=== PATIENT | female | born 1925 | race Caucasian/White ===

== ENCOUNTER 2017-03-03 12:46 | Emergency (ER) | payer MEDICARE ==
[~2017-03-03] VITALS: Ht 144.8 cm; Wt 46.0 kg
[~2017-03-03 12:46] MED LIST: CALC250 PO; CEPH500C3 PO; COSA500T PO; COZA100T PO; LORTA5 PO; MIRA0.25 PO; NAPR220T95 PO; NEUR100C PO
[2017-03-03 13:02] VITALS: BP 162/75; PULSE 82; RESP 16; TEMP 97.8; O2SAT 98
[2017-03-03] MEDS ORDERED: LOSA100T PO (13:09)
[2017-03-03] MEDS ORDERED: GABA100C4 PO (13:09)
[2017-03-03 13:13] VITALS: RESP 16; O2SAT 99
--- NOTE | 2017-03-03 13:17 | PD ---
HPI Chief Complaint: Fall Time Seen by Provider: 13:05 Travel History International Travel<30 days: No Contact w/Intl Traveler<30days: No Traveled to known affect area: No History of Present Illness HPI 89-year-old female complains of hip pain. Patient states that she was trying to get out of chair and fell onto the floor last night. Patient states that she stay on the floor all night last night. Patient finally called for help this morning. Patient was transported by EMS to the emergency room. Patient denies any headache. Patient denies any chest pain or shortness of breath. Patient denies abdominal pain. Patient denies any focal weakness or numbness of extremity. She is status post left hip surgery in the past. Patient has history hypertension. [facility] Past Medical History Arthritis: Yes (Osteo arthritis and spinal stenosis with khloe in back) Heart Rhythm Problems: No Cancer: Yes (Squamous cell skin ca, removed) Cardiovascular Problems: Yes High Cholesterol: No Chemotherapy: No Chest Pain: No Congestive Heart Failure: No Diabetes: No Endocrine: No Genitourinary: No Hepatitis: No Hiatal Hernia: No Hypertension: Yes Immune Disorder: No Implanted Vascular Access Dvce: Yes Musculoskeletal: Yes Neurologic: No Psychiatric: No Reproductive: No Respiratory: No Radiation Therapy: No Thyroid Disease: No ?: Not Past Surgical History Abdominal Surgery: No AICD: No Arteriovenous Shunt: No Cardiac Surgery: No Ear Surgery: No Endocrine Surgery: No Eye Surgery: No Genitourinary Surgery: No Gynecologic Surgery: No Insulin Pump: No Joint Replacement: Yes (Bilat hips) Oral Surgery: Yes Pacemaker: No Thoracic Surgery: No Social History Alcohol Use: No Tobacco Use: No Substance Use: No Allergies-Medications (Allergen,Severity, Reaction): Coded Allergies: codeine (Verified Adverse Reaction, Unknown, NAUSEAS, 03/03/17) Reported Meds & Prescriptions Reported Meds & Active Scripts Active Reported Losartan (Losartan Potassium) 100 Mg Tab 100 Mg PO DAILY Gabapentin 100 Mg Cap 200 Mg PO BID Review of Systems General / Constitutional: No: Fever Eyes: No: Visual changes HENT: No: Headaches Cardiovascular: No: Chest Pain or Discomfort Respiratory: No: Shortness of Breath Gastrointestinal: No: Abdominal Pain Genitourinary: No: Dysuria Musculoskeletal: Positive: Pain Skin: No Rash Neurologic: No: Weakness Psychiatric: No: Depression Endocrine: No: Polydipsia Hematologic/Lymphatic: No: Easy Bruising Physical Exam Narrative GENERAL: Well-nourished, well-developed patient. SKIN: Focused skin assessment warm/dry. HEAD: Normocephalic. EYES: No scleral icterus. No injection or drainage. NECK: Supple, trachea midline. No JVD or lymphadenopathy. CARDIOVASCULAR: Regular rate and rhythm without murmurs, gallops, or rubs. RESPIRATORY: Breath sounds equal bilaterally. No accessory muscle use. GASTROINTESTINAL: Abdomen soft, non-tender, nondistended. MUSCULOSKELETAL: No cyanosis, or edema. BACK: Nontender without obvious deformity. No CVA tenderness. Patient has moderate tenderness on palpation left hip joint. The left leg is shortened and mildly internally rotated. Sensorimotor function distally intact. Data Data Last Documented VS Vital Signs Date Time Temp Pulse Resp B/P (MAP) Pulse Ox O2 Delivery O2 Flow Rate FiO2 03/03/17 15:25 100 3.00 03/03/17 14:30 97.8 78 17 158/76 (103) Room Air Orders Orders Complete Blood Count With Diff (03/03/17 13:05) Basic Metabolic Panel (Bmp) (03/03/17 13:05) Prothrombin Time / Inr (Pt) (03/03/17 13:05) Act Partial Throm Time (Ptt) (03/03/17 13:05) Iv Access Insert/Monitor (03/03/17 13:05) Ecg Monitoring (03/03/17 13:05) Oximetry (03/03/17 13:05) Hip, Uni(Ap&Lat) W Ap Pelvis (03/03/17 13:05) Urinary Catheter Insert/Apply (03/03/17 13:39) Electrocardiogram (03/03/17 ) Chest, Single Ap (03/03/17 13:42) Etomidate Inj (Amidate Inj) (03/03/17 14:15) Splint Or Brace Apply/Monitor (03/03/17 14:08) Hip, Ap Only Wo Ap Pelvis (03/03/17 ) Knee, Ltd (1 Or 2vws) (03/03/17 15:20) Labs Laboratory Tests Test 03/03/17 13:17 White Blood Count 15.0 TH/MM3 Red Blood Count 4.68 MIL/MM3 Hemoglobin 14.7 GM/DL Hematocrit 43.0 % Mean Corpuscular Volume 92.0 FL Mean Corpuscular Hemoglobin 31.4 PG Mean Corpuscular Hemoglobin Concent 34.1 % Red Cell Distribution Width 14.0 % Platelet Count 215 TH/MM3 Mean Platelet Volume 8.8 FL Neutrophils (%) (Auto) 90.7 % Lymphocytes (%) (Auto) 3.6 % Monocytes (%) (Auto) 5.5 % Eosinophils (%) (Auto) 0.0 % Basophils (%) (Auto) 0.2 % Neutrophils # (Auto) 13.6 TH/MM3 Lymphocytes # (Auto) 0.5 TH/MM3 Monocytes # (Auto) 0.8 TH/MM3 Eosinophils # (Auto) 0.0 TH/MM3 Basophils # (Auto) 0.0 TH/MM3 CBC Comment DIFF FINAL Differential Comment Prothrombin Time 11.4 SEC Prothromb Time International Ratio 1.1 RATIO Activated Partial Thromboplast Time 25.4 SEC Blood Urea Nitrogen 26 MG/DL Creatinine 0.72 MG/DL Random Glucose 100 MG/DL Calcium Level 9.6 MG/DL Sodium Level 137 MEQ/L Potassium Level 4.0 MEQ/L Chloride Level 101 MEQ/L Carbon Dioxide Level 24.8 MEQ/L Anion Gap 11 MEQ/L Estimat Glomerular Filtration Rate 76 ML/MIN MDM Medical Decision Making Medical Screen Exam Complete: Yes Emergency Medical Condition: Yes Differential Diagnosis Differential diagnosis including contusion, sprain, fracture, dislocation. Narrative Course 89-year-old female with left hip injury. Critical Care Narrative Aggregate critical care time was 60 minutes. Time to perform other separately billable procedures was not included in the critical care time. My time did not include minutes spent treating any other patients simultaneously or on activities that did not directly contribute to the patient's treatment. The services I provided to this patient were to treat and/or prevent clinically significant deterioration that could result in: Disability I provided critical care services requiring my management, as noted below: Chart data review, documentation time, medication orders and management, vital sign assessments/reviewing monitor data, ordering and reviewing lab tests, ordering and interpreting/reviewing x-rays and diagnostic studies, care of the patient and discussion of the patient with the admitting physicians. Procedures Procedure Narrative Conscious sedation procedure: Patient was connected to property assessment monitor, pulse oximetry monitor, O2. Normal saline solution 1 25 cc an hour. Etomidate 5 mg IV given. Patient was well sedated. Traction applied to the left leg with successful reduction of the left hip dislocation. X-ray confirmed reduction. Diagnosis Primary Impression: Hip dislocation, left Qualified Codes: S73.005A - Unspecified dislocation of left hip, initial encounter Patient Instructions: General Instructions Additional Instructions: Follow-up with orthopedist. Patient has home health care at home. Tylenol as needed for pain. Disposition: 01 DISCHARGE HOME Condition: Stable Sinan Jack MD Mar 03, 2017 13:17
--- NOTE | 2017-03-03 14:00 | RADRPT ---
EXAM DATE/TIME: 03/03/2017 13:21 [facility] COMPARISON: No previous studies available for comparison. INDICATIONS : Fell last night at home. MEDICAL HISTORY : None. SURGICAL HISTORY : bilateral hip replacements ENCOUNTER: Initial ACUITY: 1 day PAIN SCORE: 8/10 LOCATION: Left hip and pelvis FINDINGS: Superior/posterior dislocation of right total arthroplasty on the left without fracture. Intac arthr oplasty on the right. Previous lumbar spine surgery. CONCLUSION: Dislocation of arthroplasty on the left without fracture. Elie Luis MD FACR on March 03, 2017 at 13:57 Board Certified Radiologist. This report was verified electronically.
[2017-03-03 14:05] LABS: AUTOMATED NEUTROPHIL # 13.6 TH/MM3 (1.8-7.7); BASOPHIL % 0.2 % (0.0-2.0); HEMOGLOBIN 14.7 GM/DL (11.6-15.3); LYMPH % 3.6 % (9.0-44.0); LYMPHOCYTE # 0.5 TH/MM3 (1.0-4.8); MEAN CORPUSCULAR HEMOGLOBIN 31.4 PG (27.0-34.0); MEAN CORPUSCULAR HGB CONC 34.1 % (32.0-36.0); MEAN PLATELET VOLUME 8.8 FL (7.0-11.0); MONO % 5.5 % (0.0-8.0); MONOCYTE # 0.8 TH/MM3 (0-0.9); NEUT % 90.7 % (16.0-70.0); PLATELET COUNT 215 TH/MM3 (150-450); RED BLOOD COUNT 4.68 MIL/MM3 (4.00-5.30)
[2017-03-03 14:14] LABS: INTERNATIONAL NORMALIZED RATIO 1.1 RATIO; PROTHROMBIN TIME - PATIENT 11.4 SEC (9.8-11.6)
[2017-03-03] MEDS ORDERED: ETOMIDATE 20 MG/10 ML VIAL IV PUSH ONE (14:15)
[2017-03-03 14:30] VITALS: BP 158/76; PULSE 78; RESP 17; TEMP 97.8; O2SAT 99
--- NOTE | 2017-03-03 14:33 | RADRPT ---
EXAM DATE/TIME: 03/03/2017 13:58 [facility] COMPARISON: HIP LEFT (AP&LAT 2/3VWS) W AP PELVIS, March 03, 2017, 13:21. INDICATIONS : Shortness of breath. MEDICAL HISTORY : Hypertension. Arthritis. SURGICAL HISTORY : Bilateral hip replacements. ENCOUNTER: Subsequent ACUITY: 2 days PAIN SCORE: 0/10 LOCATION: Bilateral chest FINDINGS: The heart is enlarged. There are chronic interstitial changes. Findings are consistent with COPD. Not e is made of a 9 mm calcified granuloma on the right. No pleural effusion is seen. The visualized oss eous structures are intact. CONCLUSION: 1. Moderate COPD. Mirza Luis MD on March 03, 2017 at 14:30 Board Certified Radiologist. This report was verified electronically.
[2017-03-03 14:42] LABS: BICARBONATE 24.8 MEQ/L (21.0-32.0); CALCIUM 9.6 MG/DL (8.5-10.1); CREATININE 0.72 MG/DL (0.50-1.00)
[2017-03-03 15:25] VITALS: O2SAT 100
--- NOTE | 2017-03-03 15:46 | RADRPT ---
EXAM DATE/TIME: 03/03/2017 15:20 [facility] COMPARISON: No previous studies available for comparison. INDICATIONS : Fell last night. MEDICAL HISTORY : None. SURGICAL HISTORY : bilateral hip replacements ENCOUNTER: Initial ACUITY: 1 day PAIN SCORE: Non-responsive. LOCATION: Left knee FINDINGS: Extensive vascular calcifications. Moderate degenerative changes lateral compartment. No joint effu tom no fracture CONCLUSION: Moderate degenerative changes otherwise negative Elie Luis MD FACR on March 03, 2017 at 15:43 Board Certified Radiologist. This report was verified electronically.
--- NOTE | 2017-03-03 15:49 | RADRPT ---
EXAM DATE/TIME: 03/03/2017 15:17 [facility] COMPARISON: HIP LEFT (AP&LAT 2/3VWS) W AP PELVIS, March 03, 2017, 13:21. CHEST SINGLE AP, March 03, 2017, 13 :58. INDICATIONS : Post reduction. MEDICAL HISTORY : None. SURGICAL HISTORY : bilateral hip replacements ENCOUNTER: Initial ACUITY: 1 day PAIN SCORE: Non-responsive. LOCATION: Left hip FINDINGS: The patient is post left thoracoplasty. Orthopedic hardware is well-positioned and well aligned. Ther e is no evidence of fracture or other complication. Note is made of fusion hardware within the lumbar spine. CONCLUSION: Interval reduction of the patient's left hip arthroplasty.. Mirza Luis MD on March 03, 2017 at 15:46 Board Certified Radiologist. This report was verified electronically.
--- NOTE | 2017-03-03 15:59 | HHI.FF ---
Face to Face Verification Diagnosis: (1) Hip dislocation, left Physical Therapy Order: Evaluate and Treat, Improve ambulation, Strength and gait training Home Health Nursing Order: Medical education Medication education-adverse effect Home Health Aide Order: To Assist In: Bathing and personal care, sheet metal technician and meal prep Salary And Wage Administrator Order: To Evaluate: Support services I have seen patient María Elena Vinson on 03/03/17. My clinical findings support the need for the requested home health care services because: Ltd mobility - disease progression Limited ability to care for self High risk of falls I certify that my clinical findings support that this patient is homebound because: Unsteady gait/balance Sinan Jack MD Mar 03, 2017 15:59
[2017-03-03 16:16] VITALS: BP 141/103; PULSE 87; RESP 17
--- NOTE | 2017-03-04 13:22 | EKG ---
Date Performed: 03/03/2017 Time Performed: 13:39:46 PTAGE: 89 years EKG: Sinus rhythm LEFT ATRIAL ENLARGEMENT MARKED LEFT AXIS DEVIATION LEFT BUNDLE BRANCH BLOCK ABNORMAL ECG PREVIOUS TRACING : 04/05/2000 1052.09 Compared to previous tracing, these changes are new. DOCTOR: Juan Pierre Interpretating Date/Time 03/04/2017 13:21:29
== END 2017-03-03 17:56 | disposition home or self-care (01) ==
LOC: NEPE 12:46 → NEDAMB 17:56
DX: S73.005A Unspecified dislocation of left hip, initial encounter (principal); I44.7 Left bundle-branch block, unspecified; I10 Essential (primary) hypertension; M19.90 Unspecified osteoarthritis, unspecified site; Z96.643 Presence of artificial hip joint, bilateral; Z85.828 Personal history of other malignant neoplasm of skin; Z79.899 Other long term (current) drug therapy; W07.XXXA Fall from chair, initial encounter
CPT/HCPCS: 27250; 51702; 71045; 73501; 73502; 73560; 80048; 85025; 85610; 85730; 93005; 99291; L1830

== ENCOUNTER 2017-03-22 09:11 | Emergency (ER) | payer MEDICARE ==
[~2017-03-22] VITALS: Ht 160 cm; Wt 46.8 kg
[~2017-03-22 09:11] MED LIST changes: -CALC250 PO; -CEPH500C3 PO; -COSA500T PO; -COZA100T PO; +GABA100C4 PO; -LORTA5 PO; +LOSA100T PO; -MIRA0.25 PO; -NAPR220T95 PO; -NEUR100C PO
[2017-03-22 09:19] VITALS: BP 219/88; PULSE 84; RESP 15; TEMP 98; O2SAT 97
[2017-03-22] MEDS ORDERED: PRAM0.5T PO (09:19)
[2017-03-22] MEDS ORDERED: MORPHINE SULFATE 2 MG/ML INJ IV PUSH ONE (09:30)
--- NOTE | 2017-03-22 09:31 | PD ---
HPI Chief Complaint: Hip Injury Time Seen by Provider: 09:21 Travel History International Travel<30 days: No Contact w/Intl Traveler<30days: No Traveled to known affect area: No History of Present Illness HPI This is an 89 year-old woman who presents to the emergency department complaining of left hip pain. States she woke up this morning about it feels like her left hip is dislocated. She had a hip replacement done about 30 years ago. She's never had trouble with it until the fifth of this month she had a left hip dislocation. It was reduced in the emergency department today. She walks with a cane. She is otherwise independent and her ADLs ideals. She does live alone. History Past Medical History Narrative Medical Hypertension Social History Alcohol Use: No Tobacco Use: No Allergies-Medications (Allergen,Severity, Reaction): Coded Allergies: codeine (Verified Adverse Reaction, Unknown, NAUSEAS, 03/22/17) Reported Meds & Prescriptions Reported Meds & Active Scripts Active Reported Pramipexole (Pramipexole Dihydrochloride) 0.5 Mg Tab 0.5 Mg PO HS Losartan (Losartan Potassium) 100 Mg Tab 100 Mg PO DAILY Gabapentin 100 Mg Cap 200 Mg PO BID Review of Systems Except as stated in HPI: all other systems reviewed are Neg Physical Exam Narrative GENERAL: Well-appearing 89 year-old woman, no acute distress. SKIN: Focused skin assessment warm/dry. HEAD: Atraumatic. Normocephalic. NECK: Trachea midline. No JVD. CARDIOVASCULAR: Regular rate and rhythm. No murmur appreciated. RESPIRATORY: No accessory muscle use. Clear to auscultation. Breath sounds equal bilaterally. GASTROINTESTINAL: Abdomen soft, non-tender, nondistended. Hepatic and splenic margins not palpable. MUSCULOSKELETAL: Left hip is held slightly flexed. She is lying on her right side. She resists any movement of the left hip. Distally neurovascularly intact. NEUROLOGICAL: Awake and alert. No obvious cranial nerve deficits. Motor grossly within normal limits. Normal speech. Data Data Last Documented VS Vital Signs Date Time Temp Pulse Resp B/P (MAP) Pulse Ox O2 Delivery O2 Flow Rate FiO2 03/22/17 09:19 98.0 84 15 219/88 (131) 97 Orders Orders Hip, Uni(Ap&Lat) W Ap Pelvis (03/22/17 ) Iv Access Insert/Monitor (03/22/17 09:25) Morphine Inj (Morphine Inj) (03/22/17 09:30) Propofol 200 Mg/20 Ml Inj (Diprivan 200 (03/22/17 10:15) Hip, Ap Only Wo Ap Pelvis (03/22/17 ) Support Splint (03/22/17 11:15) [employer] Request For Service (03/22/17 11:15) MDM Medical Decision Making Medical Screen Exam Complete: Yes Emergency Medical Condition: Yes Interpretation(s) X-ray shows dislocation, repeat x-ray shows successful reduction. Differential Diagnosis Hip fracture, dislocation, contusion, other Narrative Course Medical decision-making INITIAL calls me 11 year-old woman presents emergent arm left hip dislocation. Pain, suspect dislocation. We'll check x-rays, reassess. Procedures Procedure Narrative After the risks and benefits were discussed the following procedure was performed: MODERATE SEDATION: The patient was placed on a youth nutritional monitor and pulse oximetry. An ambu bag and suction was immediately available at bedside. The patient was monitored by the nurse. Oxygen saturation, heart rate and blood pressure were monitored. Procedural sedation was acheived using propofol. The patient was observed until awake and alert. Procedural Sedation time in attendance was 20 minutes. Dislocation: Following procedural sedation, with the assistance your third check , left hip was reduced using traction countertraction. Patient tolerated well. Repeat x-ray confirms successful reduction. Diagnosis Primary Impression: Hip dislocation, left Additional Instructions: Follow-up with orthopedic doctor this week or next. Use knee immobilizer until you follow up with your orthopedic doctor. He is abduction pillow at night as discussed. Return to the emergency department for any new or worsening symptoms. Med/Other Pt SpecificInfo: No Change to Meds Disposition: 01 DISCHARGE HOME Condition: Stable Tushar Gorman MD Mar 22, 2017 09:31
--- NOTE | 2017-03-22 10:03 | RADRPT ---
EXAM DATE/TIME: 03/22/2017 09:41 [facility] COMPARISON: HIP LEFT (AP&LAT 2/3VWS) W AP PELVIS, March 03, 2017, 13:21. INDICATIONS : Woke up this morning with left hip dislocated. Pain with deformity. MEDICAL HISTORY : Arthritis. SURGICAL HISTORY : Bilateral total hips. ENCOUNTER: Initial ACUITY: 1 day PAIN SCORE: 10/10 LOCATION: Left hip. FINDINGS: Anterior superior dislocation left hip without fracture. FLOR on the right. Trace posterior spinal f ixation. CONCLUSION: Anterior superior dislocation left hip without fracture.. Elie Luis MD FACR on March 22, 2017 at 9:59 Board Certified Radiologist. This report was verified electronically.
[2017-03-22] MEDS ORDERED: PROPOFOL 200 MG/20 ML AMP IV ONE (10:15)
[2017-03-22 10:30] VITALS: O2SAT 100
--- NOTE | 2017-03-22 10:52 | RADRPT ---
EXAM DATE/TIME: 03/22/2017 10:39 [facility] COMPARISON: No previous studies available for comparison. INDICATIONS : Post reduction. MEDICAL HISTORY : hip reduced 20 SURGICAL HISTORY : left hip replaced in 1959 ENCOUNTER: Initial ACUITY: 1 day PAIN SCORE: Non-responsive. LOCATION: Left hip FINDINGS: Examination of the hip demonstrates no evidence of fracture or dislocation. Left hip prosthesis witho ut loosening. Vascular calcifications are seen. Fusion lumbar spine. Bone mineralization is normal. No foreign body is identified. CONCLUSION: Left hip prosthesis without hardware loosening or fracture. Asael Pedroza MD on March 22, 2017 at 10:49 Board Certified Radiologist. This report was verified electronically.
[2017-03-22 12:17] VITALS: BP 180/71
== END 2017-03-22 13:44 | disposition home or self-care (01) ==
LOC: NEPE 09:11
DX: M24.352 Pathological dislocation of left hip, not elsewhere classified (principal); I10 Essential (primary) hypertension; Z88.5 Allergy status to narcotic agent
CPT/HCPCS: 27265; 73501; 73502; 96374; 99285; J2270; L1830

== ENCOUNTER 2017-03-23 19:55 | Observation (INO) | payer MEDICARE ==
[~2017-03-23 19:55] MED LIST changes: +PRAM0.5T PO
[2017-03-23 20:19] VITALS: BP 230/114; PULSE 84; RESP 22; TEMP 97.9; O2SAT 100
--- NOTE | 2017-03-23 21:33 | RADRPT ---
EXAM DATE/TIME: 03/23/2017 20:54 [facility] COMPARISON: HIP LEFT AP ONLY WO AP PELVIS, March 22, 2017, 10:39. HIP LEFT (AP&LAT 2/3VWS) W AP PELVIS, 2017, 9:41. INDICATIONS : Left hip pain; possible dislocation. MEDICAL HISTORY : Multiple hip dislocations. SURGICAL HISTORY : Bilateral hip replacements. ENCOUNTER: Initial ACUITY: 1 day PAIN SCORE: 10/10 LOCATION: Left hip FINDINGS: There is a left total hip arthroplasty. There is a recurrent posterior/superior dislocation. No acute fractures demonstrated. No evidence of hardware failure or loosening. CONCLUSION: Recurrent dislocation of the left hip arthroplasty. Martinez Parra MD on March 23, 2017 at 21:30 Board Certified Radiologist. This report was verified electronically.
[2017-03-23 21:47] VITALS: BP 222/90; PULSE 91; RESP 20; O2SAT 96
--- NOTE | 2017-03-23 22:53 | RADRPT ---
EXAM DATE/TIME: 03/23/2017 22:36 [facility] COMPARISON: CHEST SINGLE AP, March 03, 2017, 13:58. INDICATIONS : Short of breath MEDICAL HISTORY : Multiple hip dislocations SURGICAL HISTORY : Bilateral hip replacements ENCOUNTER: Subsequent ACUITY: 1 day PAIN SCORE: 0/10 LOCATION: chest FINDINGS: Trace atelectasis and small effusions seen of both lung bases. No pneumothorax. Heart size stable, wi thin normal limits. Visualized osseous structures are grossly intact. Severe glenohumeral joint degenerative changes and suspected chronic full-thickness rotator cuff tears. CONCLUSION: Trace atelectasis and small pleural effusions of both lung bases. Martinez Parra MD on March 23, 2017 at 22:49 Board Certified Radiologist. This report was verified electronically.
[2017-03-23 23:32] LABS: AUTOMATED NEUTROPHIL # 10.2 TH/MM3 (1.8-7.7); BASOPHIL # 0.1 TH/MM3 (0-0.2); BASOPHIL % 0.6 % (0.0-2.0); EOSINOPHIL # 0.1 TH/MM3 (0-0.4); EOSINOPHIL % 0.8 % (0.0-4.0); HEMATOCRIT 35.5 % (35.0-46.0); LYMPHOCYTE # 0.7 TH/MM3 (1.0-4.8); MEAN CELL VOLUME 90.7 FL (80.0-100.0); MEAN CORPUSCULAR HEMOGLOBIN 30.7 PG (27.0-34.0); MEAN CORPUSCULAR HGB CONC 33.9 % (32.0-36.0); MEAN PLATELET VOLUME 8.1 FL (7.0-11.0); MONO % 7.4 % (0.0-8.0); MONOCYTE # 0.9 TH/MM3 (0-0.9); NEUT % 85.2 % (16.0-70.0); PLATELET COUNT 275 TH/MM3 (150-450); RED BLOOD COUNT 3.92 MIL/MM3 (4.00-5.30)
[2017-03-23 23:55] LABS: ALBUMIN 2.9 GM/DL (3.4-5.0); ALT (GPT) 20 U/L (10-53); AST (GOT) 26 U/L (15-37); BICARBONATE 28.3 MEQ/L (21.0-32.0); BLOOD UREA NITROGEN 14 MG/DL (7-18); CALCIUM 8.4 MG/DL (8.5-10.1); CHLORIDE 103 MEQ/L (98-107); CREATININE 0.68 MG/DL (0.50-1.00); GLOMERULAR FILTRATION RATE 81 ML/MIN (>89); GLUCOSE,RANDOM 126 MG/DL (74-106); SODIUM (NA) 138 MEQ/L (136-145)
[2017-03-23 23:57] LABS: ALKALINE PHOSPHATASE 98 U/L (45-117); TOTAL BILIRUBIN ADULT 0.5 MG/DL (0.2-1.0); TOTAL PROTEIN 6.2 GM/DL (6.4-8.2)
[2017-03-24] VITALS (12 sets, daily range): BP systolic 129–179; BP diastolic 59–108; PULSE 65–92; RESP 16–22; TEMP 97.5–98.2; O2SAT 93–97
[2017-03-24] MEDS ORDERED: MORPHINE SULFATE 4 MG/ML INJ IV PUSH ONE ×2 (00:15→00:45)
--- NOTE | 2017-03-24 01:36 | RADRPT ---
EXAM DATE/TIME: 03/24/2017 01:09 [facility] COMPARISON: No previous studies available for comparison. INDICATIONS : Post reduction. MEDICAL HISTORY : Multiple hip dislocations SURGICAL HISTORY : Bilateral hip replacements ENCOUNTER: Initial ACUITY: 1 day PAIN SCORE: 0/10 LOCATION: Left hip FINDINGS: There is a total hip replacement seen. The acetabular and femoral components appear well-placed. Ther e is no sign of dislocation. An acute fracture is not seen. There is some hypertrophic change at the lateral acetabular region. CONCLUSION: No acute abnormality seen. Martinez Meadows MD on March 24, 2017 at 1:33 Board Certified Radiologist. This report was verified electronically.
[2017-03-24 02:58] LABS: AMORPHOUS SEDIMENT, URINE RARE; BACTERIA, URINE MANY /hpf; BILIRUBIN, URINE NEG (NEG); BLOOD, URINE NEG (NEG); GLUCOSE,URINE NEG (NEG); KETONE, URINE NEG (NEG); MUCUS URINE FEW /lpf (OCC); NITRITE,URINE NEG (NEG); SQUAMOUS EPITHELIAL CELL URINE <1 /hpf (0-5); URINE COLOR YELLOW (YELLW/STRAW); URINE LEUKOCYTE ESTERASE SMALL (NEG)
--- NOTE | 2017-03-24 03:38 | PD ---
HPI . 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 Patient notes twisting fall with subsequent probable dislocation of her left hip noted by foreshortened and internally rotated pant leg consistent with prior hip dislocation of this similar prosthetic hip prior. Patient denies any other injury, denies any weakness numbness or tingling in the affected extremity. Patient notes feeling somewhat weak of late as well. Denies any fever chills sweats has no headache no visual changes no neck pain or stiffness. Patient has had some foul-smelling urine late PFSH Past Medical History Narrative Medical Past medical history reviewed Arthritis: Yes (OA) Heart Rhythm Problems: No Cancer: Yes (SKIN) Cardiovascular Problems: Yes (HTN) High Cholesterol: No Chemotherapy: No Chest Pain: No Congestive Heart Failure: No Diabetes: No Diminished Hearing: No Endocrine: No Genitourinary: No Hepatitis: No Hiatal Hernia: No Hypertension: Yes Immune Disorder: No Implanted Vascular Access Dvce: Yes Musculoskeletal: Yes Neurologic: No Psychiatric: No Reproductive: No Respiratory: No Radiation Therapy: No Thyroid Disease: No ?: Not Past Surgical History Abdominal Surgery: No AICD: No Arteriovenous Shunt: No Cardiac Surgery: No Ear Surgery: No Endocrine Surgery: No Eye Surgery: No Genitourinary Surgery: No Gynecologic Surgery: No Insulin Pump: No Joint Replacement: Yes (Bilat hips) Oral Surgery: Yes Pacemaker: No Thoracic Surgery: No Social History Alcohol Use: No Tobacco Use: No Substance Use: No Allergies-Medications (Allergen,Severity, Reaction): Coded Allergies: codeine (Verified Adverse Reaction, Unknown, NAUSEAS, 03/23/17) Reported Meds & Prescriptions Reported Meds & Active Scripts Active Reported Pramipexole (Pramipexole Dihydrochloride) 0.5 Mg Tab 0.5 Mg PO HS Losartan (Losartan Potassium) 100 Mg Tab 100 Mg PO DAILY Gabapentin 100 Mg Cap 200 Mg PO BID Narrative Medication Allergies and medications reviewed Review of Systems Except as stated in HPI: all other systems reviewed are Neg General / Constitutional: No: Fever Eyes: No: Visual changes HENT: No: Headaches Cardiovascular: No: Chest Pain or Discomfort Respiratory: No: Shortness of Breath Gastrointestinal: No: Abdominal Pain Genitourinary: Positive: Dysuria Musculoskeletal: Positive: Arthralgias, Limited ROM, Pain Skin: No Rash Neurologic: No: Weakness Psychiatric: No: Depression Endocrine: No: Polydipsia Hematologic/Lymphatic: No: Easy Bruising Physical Exam Narrative GENERAL: Awake and alert, oriented 3, no acute distress. Vital signs afebrile normal and stable SKIN: Warm and dry. Is normal no diaphoresis cyanosis or pallor HEAD: Atraumatic. Normocephalic. EYES: Pupils equal and round. No scleral icterus. No injection or drainage. ENT: No nasal bleeding or discharge. Mucous membranes pink and moist. NECK: Trachea midline. No JVD. Supple nontender full range of motion CARDIOVASCULAR: Regular rate and rhythm. S1-S2 no murmurs rubs gallops RESPIRATORY: No accessory muscle use. Clear to auscultation. Breath sounds equal bilaterally. GASTROINTESTINAL: Abdomen soft, non-tender, nondistended. Hepatic and splenic margins not palpable. MUSCULOSKELETAL: Left lower extremity foreshortened, internally rotated, decreased range of motion of left hip in a flexed position. Grossly neurovascularly intact distally NEUROLOGICAL: Awake and alert. No obvious gross focal deficits PSYCHIATRIC: Appropriate mood and affect; insight and judgment normal. Data Data Last Documented VS Vital Signs Date Time Temp Pulse Resp B/P (MAP) Pulse Ox O2 Delivery O2 Flow Rate FiO2 03/24/17 01:59 67 16 166/72 (103) 96 Nasal Cannula 2.00 03/24/17 00:18 98.1 Orders Orders Hip, Uni(Ap&Lat) W Ap Pelvis (03/23/17 ) Chest, Single Ap (03/23/17 ) Electrocardiogram (03/23/17 ) Complete Blood Count With Diff (03/23/17 22:32) Comprehensive Metabolic Panel (03/23/17 22:32) Morphine Inj (Morphine Inj) (03/24/17 00:15) Morphine Inj (Morphine Inj) (03/24/17 00:45) Hip, Uni(Ap&Lat) Wo Ap Pelvis (03/24/17 ) Immobilizer Knee 20 Inch (03/24/17 ) Urinalysis - C+S If Indicated (03/24/17 02:11) Urine Culture (03/24/17 02:45) Labs Laboratory Tests Test 03/23/17 23:10 03/24/17 02:45 White Blood Count 12.0 TH/MM3 Red Blood Count 3.92 MIL/MM3 Hemoglobin 12.0 GM/DL Hematocrit 35.5 % Mean Corpuscular Volume 90.7 FL Mean Corpuscular Hemoglobin 30.7 PG Mean Corpuscular Hemoglobin Concent 33.9 % Red Cell Distribution Width 14.0 % Platelet Count 275 TH/MM3 Mean Platelet Volume 8.1 FL Neutrophils (%) (Auto) 85.2 % Lymphocytes (%) (Auto) 6.0 % Monocytes (%) (Auto) 7.4 % Eosinophils (%) (Auto) 0.8 % Basophils (%) (Auto) 0.6 % Neutrophils # (Auto) 10.2 TH/MM3 Lymphocytes # (Auto) 0.7 TH/MM3 Monocytes # (Auto) 0.9 TH/MM3 Eosinophils # (Auto) 0.1 TH/MM3 Basophils # (Auto) 0.1 TH/MM3 CBC Comment DIFF FINAL Differential Comment Blood Urea Nitrogen 14 MG/DL Creatinine 0.68 MG/DL Random Glucose 126 MG/DL Total Protein 6.2 GM/DL Albumin 2.9 GM/DL Calcium Level 8.4 MG/DL Alkaline Phosphatase 98 U/L Aspartate Amino Transf (AST/SGOT) 26 U/L Alanine Aminotransferase (ALT/SGPT) 20 U/L Total Bilirubin 0.5 MG/DL Sodium Level 138 MEQ/L Potassium Level 3.4 MEQ/L Chloride Level 103 MEQ/L Carbon Dioxide Level 28.3 MEQ/L Anion Gap 7 MEQ/L Estimat Glomerular Filtration Rate 81 ML/MIN Urine Color YELLOW Urine Turbidity HAZY Urine pH 6.0 Urine Specific [place] 1.012 Urine Protein TRACE mg/dL Urine Glucose (UA) NEG mg/dL Urine Ketones NEG mg/dL Urine Occult Blood NEG Urine Nitrite NEG Urine Bilirubin NEG Urine Urobilinogen LESS THAN 2.0 MG/DL Urine Leukocyte Esterase SMALL Urine RBC 2 /hpf Urine WBC 7 /hpf Urine Squamous Epithelial Cells <1 /hpf Urine Amorphous Sediment RARE Urine Bacteria MANY /hpf Urine Mucus FEW /lpf Microscopic Urinalysis Comment CATH-CULTURE IND MDM Medical Decision Making Medical Screen Exam Complete: Yes Emergency Medical Condition: Yes Medical Record Reviewed: Yes Differential Diagnosis Hip dislocation, urinary tract infection Narrative Course X-ray left hip: Dislocation of prosthetic hip Procedure: With IV pain medications with adequate sedation, patient had anterior traction of reflux leg with stabilization of the pelvis with reduction of left hip. Patient tolerated well and feels greatly improved after reduction. Post redox x-ray: Reduced Urinalysis performed, patient has small leukocyte esterase and small amount of white blood cells. Possible early urinary tract infection with concomitant foul -smelling urine as per patient. Treated with Macrobid Patient lives at home alone, patient cannot reliably ambulate on left leg status post hip dislocation reduction. Case discussed with [facility]. [facility], admitted for observation and orthopedic evaluation in the morning Diagnosis Primary Impression: Hip dislocation, left Qualified Codes: S73.005A - Unspecified dislocation of left hip, initial encounter Additional Impression: Urinary tract infection Qualified Codes: N39.0 - Urinary tract infection, site not specified Admitting Information Admitting Physician Requests: Observation Jono Blake MD Mar 24, 2017 03:38
[2017-03-24] MEDS ORDERED: NITROFURANTOIN MONOHYD MACROCR 100 MG CAP PO ONE (03:45)
[2017-03-24] MEDS ORDERED: MAGNESIUM HYDROXIDE SUSP 30 ML CUP PO PRN (04:00)
[2017-03-24] MEDS ORDERED: POTASSIUM CHLORIDE 20 MEQ CONTROLLED RELEASE TAB PO ONE (04:00)
[2017-03-24] MEDS ORDERED: BISACODYL 10 MG SUPP RECTAL PRN (04:00)
[2017-03-24] MEDS ORDERED: SODIUM CHLORIDE 0.9% FLUSH 10 ML FLUSH IV FLUSH PRN (04:00)
[2017-03-24] MEDS ORDERED: ONDANSETRON HCL 4 MG/2 ML VIAL IVP PRN (04:00)
[2017-03-24] MEDS ORDERED: LACTULOSE SYRUP 20 GM/30 ML CUP PO PRN (04:00)
[2017-03-24] MEDS ORDERED: NALOXONE HCL 0.4 MG/ML AMP IV PUSH PRN (04:00)
[2017-03-24] MEDS ORDERED: ACETAMINOPHEN 325 MG TAB PO PRN (04:00)
[2017-03-24] MEDS ORDERED: SENNOSIDES 8.6 MG TAB PO PRN (04:00)
[2017-03-24] MEDS ORDERED: hydrALAZINE HCL 20 MG/ML VIAL IV PUSH ONE (04:30)
[2017-03-24] MEDS: cefTRIAXone INJ 1,000 MG in SODIUM CHLORIDE 0.9% INJ 100 ML IV SCH (04:38)
--- NOTE | 2017-03-24 08:45 | EKG ---
Date Performed: 03/23/2017 Time Performed: 23:03:17 PTAGE: 89 years EKG: Sinus rhythm POSSIBLE LEFT ATRIAL ENLARGEMENT LEFT BUNDLE BRANCH BLOCK ABNORMAL ECG PREVIOUS TRACING : 03/03/2017 13.39 No change from previous tracing noted. DOCTOR: Matt Scott Interpretating Date/Time 03/24/2017 08:44:53
[2017-03-24] MEDS: GABAPENTIN 100 MG CAP PO SCH ×2 (10:10→20:42)
[2017-03-24] MEDS: DOCUSATE SODIUM 50 MG/SENNA 8.6 MG TAB PO SCH ×2 (10:10→21:49)
[2017-03-24] MEDS: LOSARTAN 50 MG TAB PO SCH (10:10)
[2017-03-24] MEDS: SODIUM CHLORIDE 0.9% FLUSH 10 ML FLUSH IV FLUSH SCH ×2 (10:11→20:42)
[2017-03-24] MEDS: HEPARIN SODIUM - SQ 10,000 UNITS/ML VIAL SQ SCH ×2 (10:11→20:42)
--- NOTE | 2017-03-24 12:14 | HHI.HP ---
[facility] Admission Diagnosis Hip dislocation, Urinary Tract Infection Diagnoses: Chief Complaint: fall Travel History International Travel<30 Days: No Contact w/Intl Traveler <30 Da: No Traveled to Known Affected Are: No History of Present Illness Written by Kavitha Diaz, acting as scribe for Dr. Harman on 03/24/17 at 12: 13. 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 The patient reports she fell a total of 3 times yesterday. She states the first time she just slipped on the get and onto the floor but was able to get up. The third time she felt her hip come out and she was unable to get off the floor. She crawled to a phone to call for [employer]. She denies ever having any headache, dizziness, neck pain, or loss of consciousness. She denies hitting her head. Upon arrival to the ED, xray confirmed left hip dislocation, now s/p closed reduction in the ED. UA abnormal with possible UTI, although patient denies any urinary symptoms including no fevers/chills, dysuria, suprapubic pain, increased urinary frequency/urgency. She denies any other medical complaints at this time. She lives alone in a mobile home, has 4 steps to get into home, otherwise single floor unit. Review of Systems Except as stated in HPI: all other systems reviewed are Neg Past Family Social History Past Medical History hypertension osteoarthritis 3 prior hip dislocations Past Surgical History bilateral total hip arthroplasty Reported Medications Pramipexole (Pramipexole Dihydrochloride) 0.5 Mg Tab 0.5 Mg PO HS Losartan (Losartan Potassium) 100 Mg Tab 100 Mg PO DAILY Gabapentin 100 Mg Cap 200 Mg PO BID Allergies: Coded Allergies: codeine (Verified Adverse Reaction, Unknown, NAUSEAS, 03/23/17) Active Ordered Medications Current Medications Medications (Trade) Dose Ordered Sig/Orestes Route Start Time Stop Time Status Last Admin (NS Flush) 2 ml UNSCH PRN IV FLUSH 03/24/17 04:00 (NS Flush) 2 ml BID IV FLUSH 03/24/17 09:00 03/24/17 10:11 (Tylenol) 650 mg Q4H PRN PO 03/24/17 04:00 (Zofran Inj) 4 mg Q6H PRN IVP 03/24/17 04:00 03/24/17 07:30 (Heparin Inj) 5,000 units Q12HR SQ 03/24/17 09:00 03/24/17 10:11 (Narcan Inj) 0.4 mg UNSCH PRN IV PUSH 03/24/17 04:00 (Taty-Colace) 1 tab BID PO 03/24/17 09:00 03/24/17 10:10 (Milk Of Magnesia Liq) 30 ml Q12H PRN PO 03/24/17 04:00 (Senokot) 17.2 mg Q12H PRN PO 03/24/17 04:00 (Dulcolax Supp) 10 mg DAILY PRN RECTAL 03/24/17 04:00 (Lactulose Liq) 30 ml DAILY PRN PO 03/24/17 04:00 Ceftriaxone Sodium 1000 mg/ Sodium Chloride 100 ml @ 200 mls/hr DAILY@0400 IV 03/24/17 04:30 03/24/17 04:38 (Neurontin) 200 mg BID PO 03/24/17 09:00 03/24/17 10:10 (Cozaar) 100 mg DAILY PO 03/24/17 09:00 03/24/17 10:10 (Mirapex) 0.5 mg HS PO 03/24/17 21:00 Family History Family history unremarkable, no reported stroke or heart disease. Social History Denies any tobacco, alcohol, or illicit drug use. Lives alone in mobile home, has 4 steps to get into mobile home, otherwise 1 level home. Physical Exam Vital Signs Vital Signs Date Time Temp Pulse Resp B/P (MAP) Pulse Ox O2 Delivery O2 Flow Rate FiO2 03/24/17 11:30 65 20 129/59 (82) 96 Room Air 03/24/17 10:14 83 17 137/108 (118) 97 Room Air 03/24/17 07:26 98.0 71 22 152/67 (95) Nasal Cannula 1.00 03/24/17 05:34 144/76 (98) 03/24/17 01:59 67 16 166/72 (103) 96 Nasal Cannula 2.00 03/24/17 00:47 79 18 177/76 (109) 95 Nasal Cannula 1.00 03/24/17 00:18 98.1 82 16 178/106 (130) 95 Nasal Cannula 1.00 03/23/17 21:47 91 20 222/90 (134) 96 Room Air 03/23/17 20:19 97.9 84 22 230/114 (152) 100 Physical Exam GENERAL: Well-nourished, well-developed pleasant elderly female patient in [facility]. SKIN: Warm and dry. No rash. HEAD: Normocephalic. Atraumatic. EYES: Pupils equal and round. No scleral icterus. No injection or drainage. ENT: No nasal bleeding or discharge. Mucous membranes pink and moist. NECK: Supple. Trachea midline. CARDIOVASCULAR: Regular rate and rhythm. S1, S2 noted. No murmur appreciated. RESPIRATORY: No accessory muscle use. Clear to auscultation. Breath sounds equal bilaterally. GASTROINTESTINAL: Abdomen soft, non-tender, nondistended. Normoactive bowel sounds x4. MUSCULOSKELETAL: No obvious deformities. Extremities without clubbing, cyanosis , or edema. NEUROLOGICAL: Awake and alert. No obvious cranial nerve deficits. Motor grossly within normal limits. Moving all extremities spontaneously. Normal speech. PSYCHIATRIC: Appropriate mood and affect; insight and judgment normal. Laboratory Laboratory Tests Test 03/23/17 23:10 03/24/17 02:45 White Blood Count 12.0 Red Blood Count 3.92 Hemoglobin 12.0 Hematocrit 35.5 Mean Corpuscular Volume 90.7 Mean Corpuscular Hemoglobin 30.7 Mean Corpuscular Hemoglobin Concent 33.9 Red Cell Distribution Width 14.0 Platelet Count 275 Mean Platelet Volume 8.1 Neutrophils (%) (Auto) 85.2 Lymphocytes (%) (Auto) 6.0 Monocytes (%) (Auto) 7.4 Eosinophils (%) (Auto) 0.8 Basophils (%) (Auto) 0.6 Neutrophils # (Auto) 10.2 Lymphocytes # (Auto) 0.7 Monocytes # (Auto) 0.9 Eosinophils # (Auto) 0.1 Basophils # (Auto) 0.1 CBC Comment DIFF FINAL Differential Comment Blood Urea Nitrogen 14 Creatinine 0.68 Random Glucose 126 Total Protein 6.2 Albumin 2.9 Calcium Level 8.4 Alkaline Phosphatase 98 Aspartate Amino Transf (AST/SGOT) 26 Alanine Aminotransferase (ALT/SGPT) 20 Total Bilirubin 0.5 Sodium Level 138 Potassium Level 3.4 Chloride Level 103 Carbon Dioxide Level 28.3 Anion Gap 7 Estimat Glomerular Filtration Rate 81 Urine Color YELLOW Urine Turbidity HAZY Urine pH 6.0 Urine Specific [place] 1.012 Urine Protein TRACE Urine Glucose (UA) NEG Urine Ketones NEG Urine Occult Blood NEG Urine Nitrite NEG Urine Bilirubin NEG Urine Urobilinogen LESS THAN 2.0 Urine Leukocyte Esterase SMALL Urine RBC 2 Urine WBC 7 Urine Squamous Epithelial Cells <1 Urine Amorphous Sediment RARE Urine Bacteria MANY Urine Mucus FEW Microscopic Urinalysis Comment CATH-CULTURE IND Date/Time Source Procedure Growth Status 03/24/17 02:45 Urine Catheterized Urine Urine Culture Pending Received Result Diagram: 03/23/17 2310 03/23/17 2310 Imaging Last Impressions Hip X-Ray 03/24/17 0000 Signed Impressions: Service Date/Time: Friday, March 24, 2017 01:09 - CONCLUSION: No acute abnormality seen. Martinez Meadows MD Hip and Pelvis X-Ray 03/23/17 0000 Signed Impressions: Service Date/Time: February 20:54 - CONCLUSION: Recurrent dislocation of the left hip arthroplasty. Martinez Parra MD Chest X-Ray 03/23/17 0000 Signed Impressions: Service Date/Time: February 22:36 - CONCLUSION: Trace atelectasis and small pleural effusions of both lung bases. MD Lizbeth Liconai VTE Risk Assessment Caprini VTE Risk Assessment: Mod/High Risk (score >= 2) Caprini Risk Assessment Model Point Value = 1 Point Value = 2 Point Value = 3 Point Value = 5 Age 41-60 Minor surgery BMI > 25 kg/m2 Swollen legs Varicose veins or History of unexplained or recurrent spontaneous Oral contraceptives or hormone replacement Sepsis (< 1 month) Serious lung disease, including pneumonia (< 1 month) Abnormal pulmonary function Acute myocardial infarction Congestive heart failure (< 1 month) History of inflammatory bowel disease Medical patient at bed rest Age 61-74 Arthroscopic surgery Major open surgery (> 45 min) Laparoscopic surgery (> 45 min) Malignancy Confined to bed (> 72 hours) Immobilizing plaster cast Central venous access Age >= 75 History of VTE Family history of VTE Factor V Leiden Prothrombin [id number] Lupus anticoagulant Anticardiolipin antibodies Elevated serum homocysteine Heparin-induced thrombocytopenia Other congenital or acquired thrombophilia Stroke (< 1 month) Elective arthroplasty Hip, pelvis, or leg fracture Acute spinal cord injury (< 1 month) Prophylaxis Regimen Total Risk Factor Score Risk Level Prophylaxis Regimen 0-1 Low Early ambulation 2 Moderate Order ONE of the following: *Sequential Compression Device (SCD) *Heparin 5000 units SQ BID 3-4 Higher Order ONE of the following medications: *Heparin 5000 units SQ TID *Enoxaparin/Lovenox 40 mg SQ daily (WT < 150 kg, CrCl > 30 mL/min) *Enoxaparin/Lovenox 30 mg SQ daily (WT < 150 kg, CrCl > 10-29 mL/min) *Enoxaparin/Lovenox 30 mg SQ BID (WT < 150 kg, CrCl > 30 mL/min) AND/OR *Sequential Compression Device (SCD) 5 or more Highest Order ONE of the following medications: *Heparin 5000 units SQ TID (Preferred with Epidurals) *Enoxaparin/Lovenox 40 mg SQ daily (WT < 150 kg, CrCl > 30 mL/min) *Enoxaparin/Lovenox 30 mg SQ daily (WT < 150 kg, CrCl > 10-29 mL/min) *Enoxaparin/Lovenox 30 mg SQ BID (WT < 150 kg, CrCl > 30 mL/min) AND *Sequential Compression Device (SCD) Assessment and Plan Problem List: (1) Hip dislocation, left ICD Code: S73.005A - Unspecified dislocation of left hip, initial encounter (2) Urinary tract infection ICD Code: N39.0 - Urinary tract infection, site not specified Status: Acute Assessment and Plan 89-year-old female with history of hypertension, osteoarthritis, bilateral total hip arthroplasty with 3 prior hip dislocations, presents after a fall with left hip dislocation. Left Hip Dislocation: with hx of bilateral total hip arthroplasty, most recently 30years ago. -hip xray images reviewed, showed left hip dislocation -s/p closed reduction in the ER -consulted orthopedics, appreciate recommendations -patient should continue knee immobilizer and follow up with Dr. Dougherty in 2 weeks -patient to consider possible total hip arthroplasty revision as outpatient given recurrent dislocations -PT consult, recommending rehab -Case management consulted Mechanical Fall: secondary to left hip instability and dislocation -PT consulted as above -check CPK -fall precautions Hypertension: chronic, BP fairly well controlled -continue patient's losartan 100mg daily -monitor BP, adjust antihypertensives as needed UTI: patient with abnormal UA, possible UTI -continue antibiotics with IV rocephin for now -await urine culture and adjust treatment as indicated Hypokalemia: K 3.4 -given po KCl replacement -repeat K in am DVT Prophylaxis: Heparin sq Discussed Condition With Patient, ED RN This note was transcribed by janay Diaz,. I, Dr. Spenser Harman personally performed the history, physical exam, and medical decision making; and confirmed the accuracy of the information in the transcribed note. Authenticated by Dr. Spenser Harman on 03/24/17 at 12:26. Problem Qualifiers (1) Hip dislocation, left: Qualified Codes: S73.005A - Unspecified dislocation of left hip, initial encounter (2) Urinary tract infection: Qualified Codes: N39.0 - Urinary tract infection, site not specified Kavitha Diaz PA-C Mar 24, 2017 12:14 Spenser Harman MD Mar 24, 2017 12:26
--- NOTE | 2017-03-24 13:40 | PD.CONS ---
HPI Service Orthopedic Surgeons Consult Requested By Reason for Consult left total hip arthroplasty recurrent dislocation Primary Care Physician Unknown Admission Diagnosis Hip dislocation, Urinary Tract Infection Diagnoses: Chief Complaint: left total hip arthroplasty recurrent dislocation History of Present Illness Patient is an 89-year-old female who presented to the emergency department after she states she was sitting in her chair when she went to stand up and her left total hip arthroplasty dislocated. She states this was done approximately 30 years ago by . She states over the last couple of weeks she has had 3 dislocations of her total hip. Each time it has been reduced in the ED. She denies any issues with the total hip arthroplasty prior. She denies any revisions or infections on this hip. She denies any numbness or tingling. Review of Systems Constitutional: DENIES: Fever Endocrine: DENIES: Heat/cold intolerance Eyes: DENIES: Blurred vision Ears, nose, mouth, throat: DENIES: Nasal discharge Respiratory: DENIES: Cough Cardiovascular: DENIES: Chest pain Gastrointestinal: DENIES: Abdominal pain Genitourinary: DENIES: Urinary incontinence Musculoskeletal: COMPLAINS OF: Joint pain Integumentary: DENIES: Rash Hematologic/lymphatic: DENIES: Bruising Immunologic/allergic: DENIES: Eczema Neurologic: DENIES: Abnormal gait Psychiatric: DENIES: Anxiety Past Family Social History Past Medical History Hypertension, bilateral total hip arthroplasties, history of skin cancer Past Surgical History History of bilateral total hip arthroplasties, left approximate [address] sanchez Allergies: Coded Allergies: codeine (Verified Adverse Reaction, Unknown, NAUSEAS, 03/23/17) Active Ordered Medications Current Medications Medications (Trade) Dose Ordered Sig/Orestes Route Start Time Stop Time Status Last Admin (NS Flush) 2 ml UNSCH PRN IV FLUSH 03/24/17 04:00 (NS Flush) 2 ml BID IV FLUSH 03/24/17 09:00 03/24/17 10:11 (Tylenol) 650 mg Q4H PRN PO 03/24/17 04:00 (Zofran Inj) 4 mg Q6H PRN IVP 03/24/17 04:00 03/24/17 07:30 (Heparin Inj) 5,000 units Q12HR SQ 03/24/17 09:00 03/24/17 10:11 (Narcan Inj) 0.4 mg UNSCH PRN IV PUSH 03/24/17 04:00 (Taty-Colace) 1 tab BID PO 03/24/17 09:00 03/24/17 10:10 (Milk Of Magnesia Liq) 30 ml Q12H PRN PO 03/24/17 04:00 (Senokot) 17.2 mg Q12H PRN PO 03/24/17 04:00 (Dulcolax Supp) 10 mg DAILY PRN RECTAL 03/24/17 04:00 (Lactulose Liq) 30 ml DAILY PRN PO 03/24/17 04:00 Ceftriaxone Sodium 1000 mg/ Sodium Chloride 100 ml @ 200 mls/hr DAILY@0400 IV 03/24/17 04:30 03/24/17 04:38 (Neurontin) 200 mg BID PO 03/24/17 09:00 03/24/17 10:10 (Cozaar) 100 mg DAILY PO 03/24/17 09:00 03/24/17 10:10 (Mirapex) 0.5 mg HS PO 03/24/17 21:00 Reported Meds & Active Scripts Active Reported Pramipexole (Pramipexole Dihydrochloride) 0.5 Mg Tab 0.5 Mg PO HS Losartan (Losartan Potassium) 100 Mg Tab 100 Mg PO DAILY Gabapentin 100 Mg Cap 200 Mg PO BID Family History Family history unremarkable, no reported stroke or heart disease. Social History Denies any tobacco, alcohol, or illicit drug use. Lives alone in mobile home, has 4 steps to get into mobile home, otherwise 1 level home. Physical Exam Vital Signs Vital Signs Date Time Temp Pulse Resp B/P (MAP) Pulse Ox O2 Delivery O2 Flow Rate FiO2 03/24/17 11:30 65 20 129/59 (82) 96 Room Air 03/24/17 10:14 83 17 137/108 (118) 97 Room Air 03/24/17 07:26 98.0 71 22 152/67 (95) Nasal Cannula 1.00 03/24/17 05:34 144/76 (98) 03/24/17 01:59 67 16 166/72 (103) 96 Nasal Cannula 2.00 03/24/17 00:47 79 18 177/76 (109) 95 Nasal Cannula 1.00 03/24/17 00:18 98.1 82 16 178/106 (130) 95 Nasal Cannula 1.00 03/23/17 21:47 91 20 222/90 (134) 96 Room Air 03/23/17 20:19 97.9 84 22 230/114 (152) 100 Physical Exam Awake, alert, no distress Normocephalic Pupils equal Moist membranes No JVD Nonlabored respirations Regular rate Soft nontender abdomen Right lower extremity: No tenderness to palpation or deformities, full active range of motion and strength throughout. Neurovascular intact distally. brisk cap refill Left lower extremity: In knee immobilizer. No significant tenderness to palpation or deformities. Patient's are vastly intact distally. Brisk cap refill. Biilateral upper extremities: No tenderness to palpation no deformities. Full active range of motion strength. Neurovascularly intact distally. No rash Normal affect Laboratory Laboratory Tests Test 03/23/17 23:10 03/24/17 02:45 White Blood Count 12.0 Red Blood Count 3.92 Hemoglobin 12.0 Hematocrit 35.5 Mean Corpuscular Volume 90.7 Mean Corpuscular Hemoglobin 30.7 Mean Corpuscular Hemoglobin Concent 33.9 Red Cell Distribution Width 14.0 Platelet Count 275 Mean Platelet Volume 8.1 Neutrophils (%) (Auto) 85.2 Lymphocytes (%) (Auto) 6.0 Monocytes (%) (Auto) 7.4 Eosinophils (%) (Auto) 0.8 Basophils (%) (Auto) 0.6 Neutrophils # (Auto) 10.2 Lymphocytes # (Auto) 0.7 Monocytes # (Auto) 0.9 Eosinophils # (Auto) 0.1 Basophils # (Auto) 0.1 CBC Comment DIFF FINAL Differential Comment Blood Urea Nitrogen 14 Creatinine 0.68 Random Glucose 126 Total Protein 6.2 Albumin 2.9 Calcium Level 8.4 Alkaline Phosphatase 98 Aspartate Amino Transf (AST/SGOT) 26 Alanine Aminotransferase (ALT/SGPT) 20 Total Bilirubin 0.5 Sodium Level 138 Potassium Level 3.4 Chloride Level 103 Carbon Dioxide Level 28.3 Anion Gap 7 Estimat Glomerular Filtration Rate 81 Urine Color YELLOW Urine Turbidity HAZY Urine pH 6.0 Urine Specific [place] 1.012 Urine Protein TRACE Urine Glucose (UA) NEG Urine Ketones NEG Urine Occult Blood NEG Urine Nitrite NEG Urine Bilirubin NEG Urine Urobilinogen LESS THAN 2.0 Urine Leukocyte Esterase SMALL Urine RBC 2 Urine WBC 7 Urine Squamous Epithelial Cells <1 Urine Amorphous Sediment RARE Urine Bacteria MANY Urine Mucus FEW Microscopic Urinalysis Comment CATH-CULTURE IND Date/Time Source Procedure Growth Status 03/24/17 02:45 Urine Catheterized Urine Urine Culture Pending Received Result Diagram: 03/23/17 2310 03/23/17 2310 Imaging Last 24 hours Impressions Hip X-Ray 03/24/17 0000 Signed Impressions: Service Date/Time: Friday, March 24, 2017 01:09 - CONCLUSION: No acute abnormality seen. Martinez Meadows MD Assessment & Plan Assessment and Plan Patient is an 89-year-old female with recurrent left total hip arthroplasty dislocation, close reduced by ED. At this time I discussed with the patient that she has had 3 dislocations in the last couple of weeks without any significant trauma. It is been approximately 30 years since her total knee arthroscopy was placed. I've recommended that she follow-up with one of my partners who does perform total hip revisions to discuss her options. She likely would benefit from some type of total hip arthroplasty revision given her recurrent dislocations. I've counseled her on activities and positions to avoid. She should continue in a knee immobilizer until she is able to follow up in approximately [address] Stu Dougherty. Ana Ramirez MD Mar 24, 2017 13:40
[2017-03-24] MEDS: PRAMIPEXOLE DIHYDROCHLORIDE 0.25 MG TAB PO SCH (22:33)
[2017-03-25 03:48] VITALS: BP 154/65; PULSE 63; RESP 16; TEMP 98.1; O2SAT 96
[2017-03-25] MEDS: cefTRIAXone INJ 1,000 MG in SODIUM CHLORIDE 0.9% INJ 100 ML IV SCH (04:19)
[2017-03-25 08:30] VITALS: BP 162/70; PULSE 62; RESP 18; TEMP 97.9; O2SAT 97
[2017-03-25 08:32] LABS: AUTOMATED NEUTROPHIL # 4.4 TH/MM3 (1.8-7.7); BASOPHIL # 0.1 TH/MM3 (0-0.2); BASOPHIL % 0.9 % (0.0-2.0); EOSINOPHIL # 0.3 TH/MM3 (0-0.4); EOSINOPHIL % 4.1 % (0.0-4.0); HEMATOCRIT 30.7 % (35.0-46.0); HEMOGLOBIN 10.5 GM/DL (11.6-15.3); LYMPH % 14.1 % (9.0-44.0); LYMPHOCYTE # 0.9 TH/MM3 (1.0-4.8); MEAN CELL VOLUME 92.5 FL (80.0-100.0); MEAN CORPUSCULAR HEMOGLOBIN 31.8 PG (27.0-34.0); MEAN CORPUSCULAR HGB CONC 34.3 % (32.0-36.0); MEAN PLATELET VOLUME 8.4 FL (7.0-11.0); MONO % 10.2 % (0.0-8.0); MONOCYTE # 0.6 TH/MM3 (0-0.9); NEUT % 70.7 % (16.0-70.0); PLATELET COUNT 231 TH/MM3 (150-450); RED BLOOD COUNT 3.32 MIL/MM3 (4.00-5.30); WHITE BLOOD COUNT 6.2 TH/MM3 (4.0-11.0)
[2017-03-25 08:58] LABS: BICARBONATE 27.3 MEQ/L (21.0-32.0); CALCIUM 8.7 MG/DL (8.5-10.1); CREATININE 0.63 MG/DL (0.50-1.00)
[2017-03-25] MEDS: SODIUM CHLORIDE 0.9% FLUSH 10 ML FLUSH IV FLUSH SCH ×2 (09:00→20:42)
[2017-03-25] MEDS: LOSARTAN 50 MG TAB PO SCH (09:23)
[2017-03-25] MEDS: GABAPENTIN 100 MG CAP PO SCH ×2 (09:23→20:42)
[2017-03-25] MEDS: DOCUSATE SODIUM 50 MG/SENNA 8.6 MG TAB PO SCH ×2 (09:23→20:43)
[2017-03-25] MEDS: HEPARIN SODIUM - SQ 10,000 UNITS/ML VIAL SQ SCH ×2 (09:24→20:43)
--- NOTE | 2017-03-25 10:57 | HHI.PR ---
Subjective Remarks Follow-up hip dislocation. She is doing okay does not want rehabilitation. PT has recommended home care PT. Objective Vitals Vital Signs Date Time Temp Pulse Resp B/P (MAP) Pulse Ox O2 Delivery O2 Flow Rate FiO2 03/25/17 08:30 97.9 62 18 162/70 (100) 97 03/25/17 03:48 98.1 63 16 154/65 (94) 96 03/24/17 22:15 98.2 70 17 179/77 (111) 93 03/24/17 20:00 68 03/24/17 19:44 157/67 (97) 03/24/17 19:38 97.5 71 18 164/76 (105) 97 03/24/17 19:38 Room Air 03/24/17 13:45 92 17 141/65 (90) 97 Room Air 03/24/17 11:30 65 20 129/59 (82) 96 Room Air Result Diagram: 03/25/17 0734 03/25/17 0734 Imaging Last Impressions Hip X-Ray 03/24/17 0000 Signed Impressions: Service Date/Time: Friday, March 24, 2017 01:09 - CONCLUSION: No acute abnormality seen. Martinez Meadows MD Hip and Pelvis X-Ray 03/23/17 0000 Signed Impressions: Service Date/Time: February 20:54 - CONCLUSION: Recurrent dislocation of the left hip arthroplasty. Martinez Parra MD Chest X-Ray 03/23/17 0000 Signed Impressions: Service Date/Time: February 22:36 - CONCLUSION: Trace atelectasis and small pleural effusions of both lung bases. Martinez Parra MD Objective Remarks GENERAL: Well-nourished, well-developed pleasant elderly female patient in [employer]. SKIN: Warm and dry. No rash. CARDIOVASCULAR: Regular rate and rhythm. S1, S2 noted. No murmur appreciated. RESPIRATORY: No accessory muscle use. Clear to auscultation. Breath sounds equal bilaterally. GASTROINTESTINAL: Abdomen soft, non-tender, nondistended. Normoactive bowel sounds x4. MUSCULOSKELETAL: No obvious deformities. Extremities without clubbing, cyanosis , or edema. NEUROLOGICAL: Awake and alert. No obvious cranial nerve deficits. Motor grossly within normal limits. Moving all extremities spontaneously. Normal speech. PSYCHIATRIC: Appropriate mood and affect; insight and judgment normal. Procedures none A/P Problem List: (1) Hip dislocation, left ICD Code: S73.005A - Unspecified dislocation of left hip, initial encounter (2) Urinary tract infection ICD Code: N39.0 - Urinary tract infection, site not specified Status: Acute Assessment and Plan 89-year-old female with history of hypertension, osteoarthritis, bilateral total hip arthroplasty with 3 prior hip dislocations, presents after a fall with left hip dislocation. Left Hip Dislocation: with hx of bilateral total hip arthroplasty, most recently 30years ago. Resolved s/p closed reduction in the ER . Orthopedic surgery recommended weightbearing as tolerated, knee brace, posterior hip precautions and outpatient follow-up for possible total hip arthroplasty revision Mechanical Fall: secondary to left hip instability and dislocation. Fall precautions. Physical therapy Hypertension: chronic, BP not well controlled. Continue losartan and add Norvasc UTI: patient with abnormal UA, possible UTI. Switch to by mouth Ceftin follow- up culture Hypokalemia: K 3.4. Resolved status post replacement DVT Prophylaxis: Heparin sq Discharge Planning Discharge patient to home Condition on discharge: Improved Regular Diet as tolerated Ad Debby activity no driving Rx written: Norvasc, vitamin D3 and Ceftin Follow-up with primary care physician and orthopedic surgery Problem Qualifiers (1) Hip dislocation, left: Qualified Codes: S73.005A - Unspecified dislocation of left hip, initial encounter (2) Urinary tract infection: Qualified Codes: N39.0 - Urinary tract infection, site not specified Spenser Harman MD Mar 25, 2017 10:57
[2017-03-25 12:41] VITALS: BP 179/77; PULSE 72; RESP 20; TEMP 98.2; O2SAT 96
[2017-03-25 13:36] VITALS: BP 174/70
[2017-03-25] MEDS ORDERED: VITA1000 PO (13:39)
[2017-03-25] MEDS ORDERED: AMLO5 PO (13:39)
[2017-03-25] MEDS ORDERED: CEFU1TAB18 PO (13:39)
--- NOTE | 2017-03-25 13:39 | HHI.DCPOC ---
Discharge Care Plan Diagnosis: (1) Uncontrolled hypertension (2) Urinary tract infection (3) Hip dislocation, left Goals to Promote Your Health * To prevent worsening of your condition and complications * To maintain your health at the optimal level Directions to Meet Your Goals Take your medications as prescribed Follow your dietary instruction Follow activity as directed Keep your appointments as scheduled Take your immunizations and boosters as scheduled If your symptoms worsen call your PCP, if no PCP go to Urgent Care Center or Emergency Room Smoking is Dangerous to Your Health. Avoid second hand smoke Call the 24-hour hour crisis hotline for domestic abuse at Kavitha Diaz PA-C Mar 25, 2017 1:39 pm
[2017-03-25] MEDS ORDERED: amLODIPine BESYLATE 5 MG TAB PO ONE (13:45)
[2017-03-25] MEDS ORDERED: CHOLECALCIFEROL (VIT D3) 5000 UNIT CAP PO ONE (13:45)
[2017-03-25 16:48] VITALS: BP 158/64
[2017-03-25] MEDS ORDERED: MACR100C2 PO (18:11)
[2017-03-25] MEDS ORDERED: NITROFURANTOIN MONOHYD MACROCR 100 MG CAP PO SCH (18:15)
[2017-03-25] MEDS: PRAMIPEXOLE DIHYDROCHLORIDE 0.25 MG TAB PO SCH (20:42)
== END 2017-03-26 01:33 | disposition home health service (06) ==
LOC: NEDAMB 19:55 → NEDA 03-24 03:43 → NEDH 03-24 10:59 → NEPGCP 03-24 22:07
PROVIDERS: ADMIT Internal Medicine; ATTEND Internal Medicine
DX: T84.021A Dislocation of internal left hip prosthesis, initial encounter (principal); N39.0 Urinary tract infection, site not specified; B95.2 Enterococcus as the cause of diseases classified elsewhere; I10 Essential (primary) hypertension; E87.6 Hypokalemia; J98.11 Atelectasis; Y79.2 Prosthetic and other implants, materials and accessory orthopedic devices associated with adverse incidents; W18.30XA Fall on same level, unspecified, initial encounter; Z85.828 Personal history of other malignant neoplasm of skin; Z96.643 Presence of artificial hip joint, bilateral
CPT/HCPCS: 27265; 71045; 73502; 80048; 80053; 81001; 82306; 82550; 82948; 85025; 87077; 87086; 87186; 93005; 96365; 96372; 96375; 96376; 97110; 97116; 97162; 99285; G0378; G8987; G8988; J0360; J0696; J1644; J2270; J2405; L1830

== ENCOUNTER 2017-04-08 08:56 | Inpatient (IN) | payer MEDICARE ==
[2017-04-08] VITALS (12 sets, daily range): BP systolic 131–157; BP diastolic 61–70; PULSE 75–87; RESP 18–22; TEMP 97.5–98.8; O2SAT 95–99
[~2017-04-08] VITALS: Ht 152.4 cm; Wt 47.0 kg
[~2017-04-08 08:56] MED LIST changes: +AMLO5 PO; +CEFU1TAB18 PO; +MACR100C2 PO; +VITA1000 PO
[2017-04-08] MEDS ORDERED: SODIUM CHLOR 0.9% 1000 ML INJ 1,000 ML IV SCH (09:09)
[2017-04-08] MEDS ORDERED: PANTOPRAZOLE INJ 80 MG in SODIUM CHLORIDE 0.9% INJ 35 ML IV ONE (09:09)
[2017-04-08] MEDS ORDERED: SODIUM CHLORIDE 0.9% FLUSH 10 ML FLUSH IVF PRN (09:15)
--- NOTE | 2017-04-08 09:24 | PD ---
HPI Chief Complaint: Bleeding Time Seen by Provider: 09:00 Travel History International Travel<30 days: No Contact w/Intl Traveler<30days: No Traveled to known affect area: No History of Present Illness HPI The patient is a 89-year-old female who presents to the emergency department via EMS for a GI bleed. According to EMS the patient is living at home, the neighbor has been helping to take care of the patient at home. Per the neighbor's report the patient had several episodes of bright red blood via the rectum with large blood clots. The patient is unsure if she had any visible rectal bleeding, does complain of mild nausea without any vomiting or abdominal pain. She denies taking any anticoagulants. The patient does complain of some generalized weakness but denies any dizziness, lightheadedness , shortness of breath, or chest pain. Symptoms are moderate. There are currently no alleviating or exacerbating factors. PFSH Past Medical History Arthritis: Yes (OA) Heart Rhythm Problems: No Cancer: Yes (SKIN) Cardiovascular Problems: Yes (HTN) High Cholesterol: No Chemotherapy: No Chest Pain: No Congestive Heart Failure: No Diabetes: No Diminished Hearing: No Endocrine: No Genitourinary: No Hepatitis: No Hiatal Hernia: No Hypertension: Yes Immune Disorder: No Implanted Vascular Access Dvce: Yes Musculoskeletal: Yes Neurologic: No Psychiatric: No Reproductive: No Respiratory: No Radiation Therapy: No Thyroid Disease: No Past Surgical History Abdominal Surgery: No AICD: No Arteriovenous Shunt: No Cardiac Surgery: No Ear Surgery: No Endocrine Surgery: No Eye Surgery: No Genitourinary Surgery: No Gynecologic Surgery: No Insulin Pump: No Joint Replacement: Yes (Bilat hips) Oral Surgery: Yes Pacemaker: No Thoracic Surgery: No Social History Alcohol Use: No Tobacco Use: No Substance Use: No Allergies-Medications (Allergen,Severity, Reaction): Coded Allergies: codeine (Verified Adverse Reaction, Unknown, NAUSEAS, 03/23/17) Reported Meds & Prescriptions Reported Meds & Active Scripts Active Norvasc (Amlodipine Besylate) 5 Mg Tab 5 Mg PO DAILY Vitamin D-1000 (Cholecalciferol) 1,000 Unit Tab 1,000 Units PO DAILY Reported Pramipexole (Pramipexole Dihydrochloride) 0.5 Mg Tab 0.5 Mg PO HS Losartan (Losartan Potassium) 100 Mg Tab 100 Mg PO DAILY Gabapentin 100 Mg Cap 200 Mg PO BID Review of Systems Except as stated in HPI: all other systems reviewed are Neg General / Constitutional: No: Fever HENT: No: Lightheadedness Cardiovascular: No: Chest Pain or Discomfort Respiratory: No: Shortness of Breath Gastrointestinal: Positive: Nausea, Hematochezia, No: Vomiting, Diarrhea, Abdominal Pain, Hematemesis Genitourinary: No: Hematuria Musculoskeletal: Positive: Weakness Neurologic: Positive: Weakness, No: Dizziness Physical Exam Narrative GENERAL: Awake, alert, nontoxic-appearing 89-year-old female who appears her stated age and is in no acute respiratory distress. SKIN: Focused skin assessment warm/dry. HEAD: Atraumatic. Normocephalic. EYES: Pupils equal and round. Lower conjunctivae reveals pallor. ENT: No nasal bleeding or discharge. Mucous membranes pink and moist. NECK: Trachea midline. No JVD. CARDIOVASCULAR: Regular rate and rhythm. No murmur appreciated. RESPIRATORY: No accessory muscle use. Clear to auscultation. Breath sounds equal bilaterally. GASTROINTESTINAL: Abdomen soft, non-tender, nondistended. No rebound tenderness. Rectal: The exam was performed in the presence of a female nurse. Dark black stool that is grossly guaiac positive. MUSCULOSKELETAL: Left lower extremity is in a knee immobilizer. NEUROLOGICAL: Awake and alert. No obvious cranial nerve deficits. Motor grossly within normal limits. Normal speech. Oriented to person, place, and year. PSYCHIATRIC: Appropriate mood and affect; insight and judgment normal. Data Data Last Documented VS Vital Signs Date Time Temp Pulse Resp B/P (MAP) Pulse Ox O2 Delivery O2 Flow Rate FiO2 04/08/17 09:41 77 22 144/67 (92) 97 Nasal Cannula 1.00 04/08/17 09:07 98.8 Orders Orders Complete Blood Count With Diff (04/08/17 09:09) Comprehensive Metabolic Panel (04/08/17 09:09) Lipase (04/08/17 09:09) Prothrombin Time / Inr (Pt) (04/08/17:09) Act Partial Throm Time (Ptt) (04/08/17 09:09) Type And Screen (04/08/17 09:09) Chest, Single Ap (04/08/17 09:09) Ecg Monitoring (04/08/17 09:09) Iv Access Insert/Monitor (04/08/17 09:09) Orthostatic Vital Signs (04/08/17 09:09) Oximetry (04/08/17 09:09) Sodium Chlor 0.9% 1000 Ml Inj (Ns 1000 M (04/08/17 09:09) Sodium Chloride 0.9% Flush (Ns Flush) (04/08/17 09:15) Sodium Chloride 0.9... W/Pantoprazole In (04/08/17 09:09) Sodium Chloride 0.9... W/Pantoprazole In (04/08/17 09:09) Electrocardiogram (04/08/17 09:42) Red Blood Cells (Rbc) (04/08/17 09:43) Blood Product Administration (04/08/17 09:43) Sodium Chlor 0.9% 250 Ml Inj (Ns 250 Ml (04/08/17 09:45) Diphenhydramine Inj (Benadryl Inj) (04/08/17 09:45) Acetaminophen (Tylenol) (04/08/17 09:45) Consult Gastroenterology (04/08/17 ) Gabapentin (Neurontin) (04/08/17 21:00) (Nf) Pramipexole (04/08/17 21:00) Fresh Frozen Plasma (Ffp) (04/08/17 10:05) Phytonadione Inj (Vitamin K Inj) (04/08/17 10:15) Red Blood Cells (Rbc) (04/08/17 10:05) Furosemide Inj (Lasix Inj) (04/08/17 10:15) Admit To Inpatient (04/08/17 ) Code Status (04/08/17 10:07) Vital Signs (Adult) LINDA.Q1H (04/08/17 10:07) Activity Bed Rest (04/08/17 10:07) Diet Npo (04/08/17 Lunch) Albuterol-Ipratropium Neb (Duoneb Neb) (04/08/17 10:15) Complete Blood Count With Diff (04/09/17 04:00) Comprehensive Metabolic Panel (04/09/17 04:00) Prothrombin Time / Inr (Pt) (04/09/17 04:00) Hgb & Hct (04/08/17 14:00) Hgb & Hct (04/08/17 22:00) Hgb & Hct (04/09/17 06:00) Hgb & Hct (04/09/17 14:00) Hgb & Hct (04/09/17 22:00) Hospital Superintendent / Telemetry LINDA.Q8H (04/08/17 10:07) ^ Initiate Protocol (04/08/17 10:07) Instruction (04/08/17 10:07) Misc Nursing Information (04/08/17 10:15) Chlorhexidine 2% Cloth (Chlorhexidine 2% (04/09/17 04:00) Chlorhexidine 2% Cloth (Chlorhexidine 2% (04/08/17 10:15) Mrsa Pcr Surveillance (04/08/17 10:07) Inpatient Certification (04/08/17 ) Labs Laboratory Tests Test 04/08/17 09:15 White Blood Count 13.6 TH/MM3 Red Blood Count 1.70 MIL/MM3 Hemoglobin 5.3 GM/DL Hematocrit 15.8 % Mean Corpuscular Volume 93.0 FL Mean Corpuscular Hemoglobin 31.3 PG Mean Corpuscular Hemoglobin Concent 33.7 % Red Cell Distribution Width 14.1 % Platelet Count 263 TH/MM3 Mean Platelet Volume 8.5 FL Neutrophils (%) (Auto) 90.3 % Lymphocytes (%) (Auto) 5.0 % Monocytes (%) (Auto) 4.2 % Eosinophils (%) (Auto) 0.0 % Basophils (%) (Auto) 0.5 % Neutrophils # (Auto) 12.3 TH/MM3 Lymphocytes # (Auto) 0.7 TH/MM3 Monocytes # (Auto) 0.6 TH/MM3 Eosinophils # (Auto) 0.0 TH/MM3 Basophils # (Auto) 0.1 TH/MM3 CBC Comment DIFF FINAL Differential Comment Prothrombin Time 16.7 SEC Prothromb Time International Ratio 1.7 RATIO Activated Partial Thromboplast Time 19.4 SEC Blood Urea Nitrogen 36 MG/DL Creatinine 0.68 MG/DL Random Glucose 115 MG/DL Total Protein 4.8 GM/DL Albumin 2.4 GM/DL Calcium Level 8.1 MG/DL Alkaline Phosphatase 60 U/L Aspartate Amino Transf (AST/SGOT) 110 U/L Alanine Aminotransferase (ALT/SGPT) 55 U/L Total Bilirubin 0.6 MG/DL Sodium Level 143 MEQ/L Potassium Level 3.8 MEQ/L Chloride Level 107 MEQ/L Carbon Dioxide Level 25.3 MEQ/L Anion Gap 11 MEQ/L Estimat Glomerular Filtration Rate 81 ML/MIN Lipase 61 U/L MDM Medical Decision Making Medical Screen Exam Complete: Yes Emergency Medical Condition: Yes Medical Record Reviewed: Yes Interpretation(s) EKG reveals normal sinus rhythm with a rate 82. Left bundle branch block. Q wave noted in lead 3. Last Impressions Chest X-Ray 04/08/17 0909 Signed Impressions: Service Date/Time: Saturday, April 08, 2017 09:27 - CONCLUSION: New small left-sided pleural effusion with left lower lobe atelectasis/consolidation. Lindsay Trevino MD Laboratory Tests Test 04/08/17 09:15 White Blood Count 13.6 TH/MM3 Red Blood Count 1.70 MIL/MM3 Hemoglobin 5.3 GM/DL Hematocrit 15.8 % Mean Corpuscular Volume 93.0 FL Mean Corpuscular Hemoglobin 31.3 PG Mean Corpuscular Hemoglobin Concent 33.7 % Red Cell Distribution Width 14.1 % Platelet Count 263 TH/MM3 Mean Platelet Volume 8.5 FL Neutrophils (%) (Auto) 90.3 % Lymphocytes (%) (Auto) 5.0 % Monocytes (%) (Auto) 4.2 % Eosinophils (%) (Auto) 0.0 % Basophils (%) (Auto) 0.5 % Neutrophils # (Auto) 12.3 TH/MM3 Lymphocytes # (Auto) 0.7 TH/MM3 Monocytes # (Auto) 0.6 TH/MM3 Eosinophils # (Auto) 0.0 TH/MM3 Basophils # (Auto) 0.1 TH/MM3 CBC Comment DIFF FINAL Differential Comment Prothrombin Time 16.7 SEC Prothromb Time International Ratio 1.7 RATIO Activated Partial Thromboplast Time 19.4 SEC Blood Urea Nitrogen 36 MG/DL Creatinine 0.68 MG/DL Random Glucose 115 MG/DL Total Protein 4.8 GM/DL Albumin 2.4 GM/DL Calcium Level 8.1 MG/DL Alkaline Phosphatase 60 U/L Aspartate Amino Transf (AST/SGOT) 110 U/L Alanine Aminotransferase (ALT/SGPT) 55 U/L Total Bilirubin 0.6 MG/DL Sodium Level 143 MEQ/L Potassium Level 3.8 MEQ/L Chloride Level 107 MEQ/L Carbon Dioxide Level 25.3 MEQ/L Anion Gap 11 MEQ/L Estimat Glomerular Filtration Rate 81 ML/MIN Lipase 61 U/L Differential Diagnosis Differential diagnosis includes upper GI bleed, lower GI bleed, peptic ulcer disease, gastritis, AV malformation, angiodysplasia, diverticulosis, internal hemorrhoid, symptomatic anemia, coagulopathy. Narrative Course IV was established, labs are drawn and sent, and the patient was placed on cardiac telemetry monitoring and continuous pulse oximetry monitoring. EKG was ordered and interpreted. Type and screen was sent to lab. Rectal exam was performed in the presence of a female nurse, dark black stool that is grossly guaiac positive. The patient's orthostatics are positive, the patient had a syncopal episode during orthostatic vital signs. Lab called, the patient had a critical with a hemoglobin of 5.3. The patient was placed in a supine position , was ordered 2 units of PRBCs now and 2 units of PRBCs to be held. The patient 's last hemoglobin was greater than 10 to an of February previous ones were normal. The patient has an active GI bleed with symptomatic anemia, therefore, the on-call glove printer was paged at 9:46 AM. I discussed the patient with Dr. Quezada who recommends that the patient have a clear liquid diet, GoLYTELY today, plan for endoscopy and colonoscopy tomorrow. I discussed this with the patient who is comfortable with this plan of care. The patient does have orthostatic symptoms, syncope, secondary to symptomatic anemia. Therefore, the patient will be placed in intensive care unit overnight with active GI bleeding and severe anemia. The on-call hydraulic design engineer was paged for admission at 9:55 AM. The patient's INR was 1.7, however, the patient is not on any anticoagulants. The patient may benefit from vitamin K and/or FFP if bleeding persists. The patient's BUN was 36 with a creatinine is 0.68, likely prerenal azotemia from upper GI bleed versus dehydration. I discussed the patient with Dr. Henriquez who agrees with admission. Critical Care Narrative Aggregate critical care time was 40 minutes. Time to perform other separately billable procedures was not included in the critical care time. My time did not include minutes spent treating any other patients simultaneously or on activities that did not directly contribute to the patient's treatment. The services I provided to this patient were to treat and/or prevent clinically significant deterioration that could result in: Hemorrhagic shock, hypotension, coagulopathy, DIC, . I provided critical care services requiring my management, as noted below: Chart data review, documentation time, medication orders and management, vital sign assessments/reviewing monitor data, ordering and reviewing lab tests, ordering and interpreting/reviewing x-rays and diagnostic studies, care of the patient and discussion of the patient with the admitting physicians. [facility] Point of Care Internal Pos. & Neg. Controls: Passed Fecal Specimen Occult Blood: Positive Physician Communication Physician Communication The on-call hydraulic design engineer was paged for admission. I discussed the patient with Dr. Henriquez who agrees with admission. Diagnosis Primary Impression: GI bleed Qualified Codes: K92.1 - Melena Additional Impression: Symptomatic anemia Admitting Information Admitting Physician Requests: Admit Condition: Serious Varinder Edwards MD Apr 08, 2017 09:24
--- NOTE | 2017-04-08 09:33 | RADRPT ---
EXAM DATE/TIME: 04/08/2017 09:27 [facility] COMPARISON: CHEST SINGLE AP, March 23, 2017, 22:36. INDICATIONS : Chest discomfort, abdominal pain for 24 hours MEDICAL HISTORY : None. SURGICAL HISTORY : None. ENCOUNTER: Initial ACUITY: 1 day PAIN SCORE: 0/10 LOCATION: Bilateral chest FINDINGS: Single AP portable upright view the chest demonstrates new left lower lobe atelectasis/consolidation and small left-sided pleural effusion. The left lung is otherwise clear. Right hemithorax is clear. H eart size is normal with stable severe atherosclerosis. Degenerative changes are seen within the bila teral glenohumeral joints CONCLUSION: New small left-sided pleural effusion with left lower lobe atelectasis/consolidation. Lindsay Trevino MD on April 08, 2017 at 9:29 Board Certified Radiologist. This report was verified electronically.
[2017-04-08 09:36] LABS: AUTOMATED NEUTROPHIL # 12.3 TH/MM3 (1.8-7.7); BASOPHIL # 0.1 TH/MM3 (0-0.2); BASOPHIL % 0.5 % (0.0-2.0); LYMPHOCYTE # 0.7 TH/MM3 (1.0-4.8); MEAN CORPUSCULAR HEMOGLOBIN 31.3 PG (27.0-34.0); MEAN CORPUSCULAR HGB CONC 33.7 % (32.0-36.0); MEAN PLATELET VOLUME 8.5 FL (7.0-11.0); MONO % 4.2 % (0.0-8.0); MONOCYTE # 0.6 TH/MM3 (0-0.9); NEUT % 90.3 % (16.0-70.0); PLATELET COUNT 263 TH/MM3 (150-450); RED CELL DISTRIBUTION WIDTH 14.1 % (11.6-17.2); WHITE BLOOD COUNT 13.6 TH/MM3 (4.0-11.0)
[2017-04-08 09:43] LABS: HEMATOCRIT 15.8 % (35.0-46.0); HEMOGLOBIN 5.3 GM/DL (11.6-15.3)
[2017-04-08] MEDS ORDERED: ACETAMINOPHEN 325 MG TAB PO PRN (09:45)
[2017-04-08] MEDS ORDERED: diphenhydrAMINE HCL 50 MG/ML VIAL IV PUSH PRN (09:45)
[2017-04-08] MEDS ORDERED: SODIUM CHLOR 0.9% 250 ML INJ 250 ML IV ONE (09:45)
[2017-04-08] MEDS: PANTOPRAZOLE INJ 80 MG in SODIUM CHLORIDE 0.9% INJ 100 ML IV SCH ×2 (09:47→19:54)
[2017-04-08 09:50] LABS: INTERNATIONAL NORMALIZED RATIO 1.7 RATIO; PROTHROMBIN TIME - PATIENT 16.7 SEC (9.8-11.6)
[2017-04-08 10:00] LABS: ALBUMIN 2.4 GM/DL (3.4-5.0); ALT (GPT) 55 U/L (10-53); AST (GOT) 110 U/L (15-37); BICARBONATE 25.3 MEQ/L (21.0-32.0); BLOOD UREA NITROGEN 36 MG/DL (7-18); CALCIUM 8.1 MG/DL (8.5-10.1); CHLORIDE 107 MEQ/L (98-107); CREATININE 0.68 MG/DL (0.50-1.00); GLOMERULAR FILTRATION RATE 81 ML/MIN (>89); GLUCOSE,RANDOM 115 MG/DL (74-106); SODIUM (NA) 143 MEQ/L (136-145)
[2017-04-08 10:03] LABS: ALKALINE PHOSPHATASE 60 U/L (45-117); TOTAL BILIRUBIN ADULT 0.6 MG/DL (0.2-1.0); TOTAL PROTEIN 4.8 GM/DL (6.4-8.2)
[2017-04-08] MEDS ORDERED: CHLORHEXIDINE GLUCONATE 2 % 1 PACK (2 CLOTHS) TOP PRN (10:15)
[2017-04-08] MEDS ORDERED: RESP: ALBUTEROL 2.5 MG/IPRATROPIUM 0.5 MG NEB (PRN) INH (10:15)
[2017-04-08] MEDS ORDERED: MISCELLANEOUS NURSING INFORMATION XX SCH (10:15)
[2017-04-08] MEDS ORDERED: FUROSEMIDE 20 MG/2 ML VIAL IV PUSH ONE (10:15)
--- NOTE | 2017-04-08 10:33 | PD.CONS ---
HPI History of Present Illness This is a 89 year old F from home with medical history significant for HTN, osteoarthritis, bilateral total hip arthroplasty with history of 4 hip dislocations, recently seen in ER two weeks ago after a fall. Pt presents to the ED this morning with complaints of BRBPR that began yesterday afternoon. Pts neighbors at bedside who help take care of the patient and check on her at home. The neighbor states pt has had two episodes of hart colored blood clots in her BMs since yesterday. Pt reports some nausea. Denies emesis, abdominal pain, changes in BMS prior to yesterday, recent unintentional weight loss, acid reflux, dysphagia. Pt has never had an EGD or colonoscopy. Denies taking blood thinners. Does report taking Aleve and Naproxen daily for chronic pain. Pt denies ETOH, smoking. On admission pts H/H was 5.3/15.8, 3 U PRBCs ordered and 2 U FFP. (Dayami Puente) PFSH Past Medical History HTN Osteoarthritis Past Surgical History Hip arthroplasty (Dayami Puente) Coded Allergies: codeine (Verified Adverse Reaction, Unknown, NAUSEAS, 03/23/17) Social History Denies ETOH Denies smoking (Dayami Puente) Review of Systems Gastrointestinal: COMPLAINS OF: Bloody stools, Nausea, DENIES: Abdominal pain, Black stools, Constipation, Vomiting, Difficulty Swallowing, Odynophagia, Swelling of Abdomen, Heartburn, Hematemesis (Dayami Puente) GI Exam Vitals I&O Vital Signs Date Time Temp Pulse Resp B/P (MAP) Pulse Ox O2 Delivery O2 Flow Rate FiO2 04/08/17 09:41 77 22 144/67 (92) 97 Nasal Cannula 1.00 04/08/17 09:34 76 19 140/63 (88) 79 18 131/61 (84) 04/08/17 09:07 98.8 78 20 154/69 (97) 95 Imaging Last Impressions Chest X-Ray 04/08/17 0909 Signed Impressions: Service Date/Time: Saturday, April 08, 2017 09:27 - CONCLUSION: New small left-sided pleural effusion with left lower lobe atelectasis/consolidation. Lindsay Trevino MD Laboratory Test 04/08/17 09:15 White Blood Count 13.6 TH/MM3 Red Blood Count 1.70 MIL/MM3 Hemoglobin 5.3 GM/DL Hematocrit 15.8 % Mean Corpuscular Volume 93.0 FL Mean Corpuscular Hemoglobin 31.3 PG Mean Corpuscular Hemoglobin Concent 33.7 % Red Cell Distribution Width 14.1 % Platelet Count 263 TH/MM3 Mean Platelet Volume 8.5 FL Neutrophils (%) (Auto) 90.3 % Lymphocytes (%) (Auto) 5.0 % Monocytes (%) (Auto) 4.2 % Eosinophils (%) (Auto) 0.0 % Basophils (%) (Auto) 0.5 % Neutrophils # (Auto) 12.3 TH/MM3 Lymphocytes # (Auto) 0.7 TH/MM3 Monocytes # (Auto) 0.6 TH/MM3 Eosinophils # (Auto) 0.0 TH/MM3 Basophils # (Auto) 0.1 TH/MM3 CBC Comment DIFF FINAL Differential Comment Prothrombin Time 16.7 SEC Prothromb Time International Ratio 1.7 RATIO Activated Partial Thromboplast Time 19.4 SEC Blood Urea Nitrogen 36 MG/DL Creatinine 0.68 MG/DL Random Glucose 115 MG/DL Total Protein 4.8 GM/DL Albumin 2.4 GM/DL Calcium Level 8.1 MG/DL Alkaline Phosphatase 60 U/L Aspartate Amino Transf (AST/SGOT) 110 U/L Alanine Aminotransferase (ALT/SGPT) 55 U/L Total Bilirubin 0.6 MG/DL Sodium Level 143 MEQ/L Potassium Level 3.8 MEQ/L Chloride Level 107 MEQ/L Carbon Dioxide Level 25.3 MEQ/L Anion Gap 11 MEQ/L Estimat Glomerular Filtration Rate 81 ML/MIN Lipase 61 U/L Physical Examination HEENT: Normocephalic; atraumatic CHEST: Even/unlabored CARDIAC: RRR ABDOMEN: Cachectic, sunken, soft, nontender, bowel sounds active EXTREMITIES: No clubbing, cyanosis, or edema. SKIN: Pale TEMPERING KILN TENDER: No focal deficits; alert and oriented times three. (Dayami Puente) Assessment and Plan Plan Assessment: - GIB- BRBPR x 2 since yesterday. Denies history of GIB. Has never had EGD or colonoscopy. Denies taking blood thinners, ETOH, smoking. Of note, takes Aleve and Naproxen daily. H/H 5.3/15.8 on admission, 3 U PRBCs ordered. INR 1.7, 2 U FFP ordered per attending and Vit K. Pt reports some emesis. Denies abdominal pain, emesis, acid reflux, dysphagia. - Transaminitis- AST-110 ALT-155. Unclear etiology. Will order liver POND. No previous abdominal imaging in chart Plan: EGD/colonoscopy tomorrow Obtain consent Clear liquids today Magnesium Citrate prep NPO after MN Serial H/H Protonix gtt Liver POND US liver Further recommendations to follow based on results of above Pt has been seen and examined by myself and Dr. Quezada and this note is written on his behalf (Dayami Puente) Physician Comments Patient seen and examined Agree with above Continue with current supportive care Monitor labs Plan for an EGD and a colonoscopy tomorrow (Michael Quezada MD) Dayami Puente Apr 08, 2017 10:33 Michael Quezada MD Apr 08, 2017 23:00
[2017-04-08] MEDS ORDERED: PHYTONADIONE INJ 10 MG in DEXTROSE 5% IN WATER INJ 50 ML IV ONE ×2 (12:00)
[2017-04-08] MEDS ORDERED: ONDANSETRON HCL 4 MG/2 ML VIAL IV PUSH PRN (12:15)
--- NOTE | 2017-04-08 13:12 | RADRPT ---
EXAM DATE/TIME: 04/08/2017 12:11 [facility] COMPARISON: No previous studies available for comparison. INDICATIONS : Increased lab values. MEDICAL HISTORY : Hypertension. Osteoarthritis. Skin cancer. SURGICAL HISTORY : Back surgery. Bilateral hip replacements. ENCOUNTER: Initial ACUITY: 1 day PAIN SCORE: 0/10 LOCATION: Bilateral upper quadrant MEASUREMENTS: LIVER: 13.2 cm length COMMON DUCT: 5 mm RIGHT KIDNEY: 8.5 x 3.3 x 3.6 cm SPLEEN: 7.1 cm length FINDINGS: LIVER: Normal echotexture without focal lesion or ductal dilatation. COMMON DUCT: No intraluminal mass or stone visualized. GALLBLADDER: Contains no stones, demonstrates no wall thickening or pericholecystic fluid. PANCREAS: The visualized portions are within normal limits. RIGHT KIDNEY: No hydronephrosis, stone or mass. Mild thinning of the cortex SPLEEN: No focal lesion. CONCLUSION: Mild thinning of the renal cortex of the right kidney. Otherwise negative exam Douglas Bruno MD on April 08, 2017 at 13:08 Board Certified Radiologist. This report was verified electronically.
--- NOTE | 2017-04-08 14:34 | HHI.HP ---
[facility] Service Critical Care Medicine Primary Care Physician Fauzia Betts MD Admission Diagnosis symptomatic anemia, GI bleed, azotemia Diagnosis: (1) Symptomatic anemia Diagnosis: Principal (2) GI bleed Diagnosis: Principal (3) Transaminitis Diagnosis: Principal (4) Hypertension Diagnosis: Secondary Chief Complaint: Severe anemia requiring transfusion Travel History International Travel<30 Days: No Contact w/Intl Traveler <30 Da: No Traveled to Known Affected Are: No History of Present Illness Patient is a 89-year-old female with past medical history significant for hypertension, osteoarthritis and restless leg syndrome who presented to the emergency department history of bleeding per rectum since yesterday afternoon. 2 episodes of passing large blood clots since yesterday. Pt reports some nausea. Patient denies any hematemesis or family history of cancers, but recent unintentional weight loss. Apparently never had an EGD or colonoscopy. She takes Aleve and Naproxen daily for chronic pain. Initial hemoglobin was 5.3 and patient is getting the unit PRBC transfusion. Gi had been consulted and they are planning on panendoscopy tomorrow I evaluated the patient in the ICU. She is mildly anxious and pale otherwise hemodynamically stable. Currently receiving blood transfusion. Patient was admitted to [facility] about 2 weeks ago fall with left hip dislocation. Underwent closed reduction in the ER and was DCd for ortho follow up Review of Systems ROS Limitations: Other (as per HPI) Past Family Social History Allergies: Coded Allergies: codeine (Verified Adverse Reaction, Unknown, NAUSEAS, 03/23/17) Past Medical History Hypertension Osteoarthritis Restless leg syndrome Past Surgical History Bilateral hip and back surgery Reported Medications Norvasc (Amlodipine Besylate) 5 Mg Tab 5 Mg PO DAILY Vitamin D-1000 (Cholecalciferol) 1,000 Unit Tab 1,000 Units PO DAILY Pramipexole (Pramipexole Dihydrochloride) 0.5 Mg Tab 0.5 Mg PO HS Losartan (Losartan Potassium) 100 Mg Tab 100 Mg PO DAILY Gabapentin 100 Mg Cap 200 Mg PO BID Active Ordered Medications Reviewed Family History No family history of cancers Social History Life time nonsmoker, never drank Physical Exam Vital Signs Vital Signs Date Time Temp Pulse Resp B/P (MAP) Pulse Ox O2 Delivery O2 Flow Rate FiO2 04/08/17 11:04 98.2 78 20 157/65 97 04/08/17 11:03 04/08/17 10:45 97.5 80 20 157/70 99 04/08/17 09:41 77 22 144/67 (92) 97 Nasal Cannula 1.00 04/08/17 09:34 76 19 140/63 (88) 79 18 131/61 (84) 04/08/17 09:07 98.8 78 20 154/69 (97) 95 Physical Exam GENERAL: Awake, alert, 89-year-old female mildly anxious SKIN: warm/dry. HEAD: Atraumatic. Normocephalic. EYES: Pupils equal and round. Pallor. ENT: No nasal bleeding or discharge. Mucous membranes dry NECK: Trachea midline. No JVD. CARDIOVASCULAR: Regular rate and rhythm. No murmur appreciated. RESPIRATORY: No accessory muscle use. Clear to auscultation. GASTROINTESTINAL: Abdomen soft, non-tender, nondistended. No rebound tenderness. (Rectal exam by ED Dr. Lombardo: Dark black stool that is grossly guaiac positive) MUSCULOSKELETAL: Left lower extremity is in a knee immobilizer. NEUROLOGICAL: Awake and alert. Motor grossly within normal limits. Normal speech. Oriented to person, place, and year. Laboratory Laboratory Tests Test 04/08/17 09:15 White Blood Count 13.6 Red Blood Count 1.70 Hemoglobin 5.3 Hematocrit 15.8 Mean Corpuscular Volume 93.0 Mean Corpuscular Hemoglobin 31.3 Mean Corpuscular Hemoglobin Concent 33.7 Red Cell Distribution Width 14.1 Platelet Count 263 Mean Platelet Volume 8.5 Neutrophils (%) (Auto) 90.3 Lymphocytes (%) (Auto) 5.0 Monocytes (%) (Auto) 4.2 Eosinophils (%) (Auto) 0.0 Basophils (%) (Auto) 0.5 Neutrophils # (Auto) 12.3 Lymphocytes # (Auto) 0.7 Monocytes # (Auto) 0.6 Eosinophils # (Auto) 0.0 Basophils # (Auto) 0.1 CBC Comment DIFF FINAL Differential Comment Prothrombin Time 16.7 Prothromb Time International Ratio 1.7 Activated Partial Thromboplast Time 19.4 Blood Urea Nitrogen 36 Creatinine 0.68 Random Glucose 115 Total Protein 4.8 Albumin 2.4 Calcium Level 8.1 Alkaline Phosphatase 60 Aspartate Amino Transf (AST/SGOT) 110 Alanine Aminotransferase (ALT/SGPT) 55 Total Bilirubin 0.6 Sodium Level 143 Potassium Level 3.8 Chloride Level 107 Carbon Dioxide Level 25.3 Anion Gap 11 Estimat Glomerular Filtration Rate 81 Lipase 61 Result Diagram: 04/08/1791404/08/17914 Imaging CXR small Left pleural effusion Septic Shock Reassessment Septic shock perfusion: reassessment completed Caprini VTE Risk Assessment Caprini VTE Risk Assessment: Mod/High Risk (score >= 2) VTE Pharm Contraindication: Hemorrhage Caprini Risk Assessment Model Point Value = 1 Point Value = 2 Point Value = 3 Point Value = 5 Age 41-60 Minor surgery BMI > 25 kg/m2 Swollen legs Varicose veins or History of unexplained or recurrent spontaneous Oral contraceptives or hormone replacement Sepsis (< 1 month) Serious lung disease, including pneumonia (< 1 month) Abnormal pulmonary function Acute myocardial infarction Congestive heart failure (< 1 month) History of inflammatory bowel disease Medical patient at bed rest Age 61-74 Arthroscopic surgery Major open surgery (> 45 min) Laparoscopic surgery (> 45 min) Malignancy Confined to bed (> 72 hours) Immobilizing plaster cast Central venous access Age >= 75 History of VTE Family history of VTE Factor V Leiden Prothrombin [id number] Lupus anticoagulant Anticardiolipin antibodies Elevated serum homocysteine Heparin-induced thrombocytopenia Other congenital or acquired thrombophilia Stroke (< 1 month) Elective arthroplasty Hip, pelvis, or leg fracture Acute spinal cord injury (< 1 month) Prophylaxis Regimen Total Risk Factor Score Risk Level Prophylaxis Regimen 0-1 Low Early ambulation 2 Moderate Order ONE of the following: *Sequential Compression Device (SCD) *Heparin 5000 units SQ BID 3-4 Higher Order ONE of the following medications: *Heparin 5000 units SQ TID *Enoxaparin/Lovenox 40 mg SQ daily (WT < 150 kg, CrCl > 30 mL/min) *Enoxaparin/Lovenox 30 mg SQ daily (WT < 150 kg, CrCl > 10-29 mL/min) *Enoxaparin/Lovenox 30 mg SQ BID (WT < 150 kg, CrCl > 30 mL/min) AND/OR *Sequential Compression Device (SCD) 5 or more Highest Order ONE of the following medications: *Heparin 5000 units SQ TID (Preferred with Epidurals) *Enoxaparin/Lovenox 40 mg SQ daily (WT < 150 kg, CrCl > 30 mL/min) *Enoxaparin/Lovenox 30 mg SQ daily (WT < 150 kg, CrCl > 10-29 mL/min) *Enoxaparin/Lovenox 30 mg SQ BID (WT < 150 kg, CrCl > 30 mL/min) AND *Sequential Compression Device (SCD) Assessment and Plan Assessment and Plan NEURO: Restless leg syndrome -Continue Pramipexole otherwise minimize sedation -Tylenol as needed for pain RESP: -Nasal cannula oxygen if needed to keep saturation above 90% CV: -Normal saline IV fluids at 75 ml per hour GI/HEME: GI bleed Anemia requiring transfusion Coagulopathy/elevated INR Transaminitis -Receiving total 3 units PRBC -Also receiving 1 unit of FFP and vitamin K -Avoid NSAIDs -Protonix bolus and infusion -GI planning on panendoscopy. Dr Quezada -Clear liquid diet, n.p.o. after midnight -Liver US unremarkable : - Monitor renal function closely. IV hydration as above ID: -Mild leukocytosis may be stress related -Check UA. Culture if needed ENDO: -Electrolyte replacement protocol PROPH: -Bilateral lower extremity SCDs/GREGORY. Avoid chemical DVT prophylaxis due to anemia requiring transfusion. Protonix gtt CC time 35 min Code Status Full Problem Qualifiers (1) GI bleed: Qualified Codes: K92.1 - Weston Rubio MD Apr 08, 2017 14:34
[2017-04-08 15:37] LABS: % SATURATION IRON PROFILE 26.4 % (20-50); IRON (FE) 61 MCG/DL (50-170); TOTAL IRON BINDING CAPACITY 231 MCG/DL (250-450)
[2017-04-08] MEDS ORDERED: MAGNESIUM CITRATE SOLN 300 ML BTL PO ONE ×2 (16:00→18:00)
[2017-04-08 16:01] LABS: FERRITIN 1110 NG/ML (8-252)
[2017-04-08] MEDS ORDERED: PRAMIPEXOLE DIHYDROCHLORIDE 0.25 MG TAB PO SCH (21:00)
[2017-04-08] MEDS ORDERED: GABAPENTIN 100 MG CAP PO SCH (21:00)
[2017-04-08 22:26] LABS: BASOPHIL % 0.1 % (0.0-2.0); LYMPH % 3.6 % (9.0-44.0); MEAN CELL VOLUME 89.4 FL (80.0-100.0); MEAN CORPUSCULAR HEMOGLOBIN 30.6 PG (27.0-34.0); MEAN CORPUSCULAR HGB CONC 34.2 % (32.0-36.0); MEAN PLATELET VOLUME 9.4 FL (7.0-11.0); MONO % 3.1 % (0.0-8.0); MONOCYTE # 0.9 TH/MM3 (0-0.9); NEUT % 93.2 % (16.0-70.0); PLATELET COUNT 160 TH/MM3 (150-450); RED BLOOD COUNT 2.24 MIL/MM3 (4.00-5.30); RED CELL DISTRIBUTION WIDTH 14.9 % (11.6-17.2); WHITE BLOOD COUNT 27.9 TH/MM3 (4.0-11.0)
[2017-04-08 22:40] LABS: HEMOGLOBIN 6.9 GM/DL (11.6-15.3)
[2017-04-08] MEDS ORDERED: EPINEPHrine HCL (1:10,000) 1 MG/10 ML SYRINGE IV ONE (23:36)
[2017-04-08] MEDS ORDERED: ATROPINE SULFATE 1 MG/10 ML SYRINGE IV ONE (23:36)
[2017-04-08] MEDS ORDERED: DIGOXIN 0.5 MG/2 ML VIAL IV PUSH ONE (23:36)
--- NOTE | 2017-04-09 00:50 | EKG ---
Date Performed: 04/08/2017 Time Performed: 09:13:10 PTAGE: 89 years EKG: Sinus rhythm LEFT BUNDLE BRANCH BLOCK ABNORMAL ECG INTERPRETATION BASED ON A DEFAULT AGE OF 40 YEARS PREVIOUS TRACING : 03/23/2017 23.03 Since the prior tracing, there has been no significan t change DOCTOR: Jose Lombardo Interpretating Date/Time 04/09/2017 00:49:50
[2017-04-09] MEDS ORDERED: CHLORHEXIDINE GLUCONATE 2 % 1 PACK (2 CLOTHS) TOP SCH (04:00)
[2017-04-09] MEDS ORDERED: MAGNESIUM CITRATE SOLN 300 ML BTL PO ONE (07:00)
--- NOTE | 2017-04-11 13:04 | DEATH SUM ---
Summary Demographics Date Pronounced : Apr 08, 2017 Time Of : 7 Pronounced By: dr fink Preliminary Cause of : Cardiac arrest Weston Henriquez MD Apr 11, 2017 13:04
== END 2017-04-08 23:37 | disposition expired | DRG 378 ==
LOC: NEPE 08:56 → NEDA 10:12 → HIME 11:16
PROVIDERS: ADMIT Internal Medicine; ATTEND Internal Medicine
PROC: 30233N1 Transfusion of Nonautologous Red Blood Cells into Peripheral Vein, Percutaneous Approach (ICD-10-PCS; principal; 2017-04-08)
PROC: 5A12012 Performance of Cardiac Output, Single, Manual (ICD-10-PCS; 2017-04-08)
PROC: 30233K1 Transfusion of Nonautologous Frozen Plasma into Peripheral Vein, Percutaneous Approach (ICD-10-PCS; 2017-04-08)
PROC: 0BH17EZ Insertion of Endotracheal Airway into Trachea, Via Natural or Artificial Opening (ICD-10-PCS; 2017-04-08)
PROC: 5A1935Z Respiratory Ventilation, Less than 24 Consecutive Hours (ICD-10-PCS; 2017-04-08)
DX: K92.1 Melena (principal); D68.9 Coagulation defect, unspecified; I46.9 Cardiac arrest, cause unspecified; D64.9 Anemia, unspecified; I10 Essential (primary) hypertension; M19.90 Unspecified osteoarthritis, unspecified site; Z96.643 Presence of artificial hip joint, bilateral; G89.29 Other chronic pain; K21.9 Gastro-esophageal reflux disease without esophagitis; R74.0 Nonspecific elevation of levels of transaminase and lactic acid dehydrogenase [LDH]; G25.81 Restless legs syndrome; D72.829 Elevated white blood cell count, unspecified; R11.2 Nausea with vomiting, unspecified
CPT/HCPCS: 31500; 36430; 71045; 76705; 80053; 82607; 82728; 83520; 83540; 83550; 83690; 85025; 85610; 85730; 86850; 86900; 86901; 86920; 86927; 87641; 92950; 93005; 94002; 96365; C9113; J0171; J0461; J1160; J1940; J3430; J7030; P9016; P9017